=== PATIENT | male | born 1945 | race Caucasian/White ===

== ENCOUNTER 2016-09-28 09:19 | Inpatient (IN) | payer OTHER ==
[~2016-09-28] VITALS: Ht 172.7 cm; Wt 126.6 kg
[~2016-09-28 09:19] MED LIST: ALLOPURINOL100 MG PO; AMLODIPINE BESY10 MG PO; CALCITRIOL0.25 MCG PO; CALCIUM ACETAT667 M2 PO; CALCIUM ACETAT667 MG PO; CALCIUM CARBONATE PO; CARDIZEM30 MG PO; CARDURA4 MG PO; COUMADIN1 MG PO; COUMADIN2 MG PO; DOXAZOSIN MESYLA4 MG PO; EPOGEN,PRO20000 UNIT SC; ERGOCALCIF50000 UNIT PO; FENOGLIDE120 MG PO; FEOSOL325 MG PO; FUROSEMIDE40 MG PO; LASIX40 MG PO; LO-DOSE ASPIRIN81 M1 PO; LOFIBRA134 MG PO; LOPRESSOR100 M1 PO; LOPRESSOR50 MG PO; LOVAZA1 GM PO; NORVASC10 MG PO; OMEGA-3 ACID ETH1 GM PO; PIOGLITAZONE HC30 MG PO; PRAVACHOL20 MG PO; PRAVASTATIN SOD20 MG PO; QVAR 40 MCG IN7.3 GM IH; RENAL-VITE TAB0.8 MG PO; ROCALTROL0.25 MCG PO; TYLENOL EXTRA500 MG PO; ZYLOPRIM100 MG PO
[2016-10-02] MEDS ORDERED: LOPRESSOR100 M1 PO (16:25)
[2016-10-02] MEDS ORDERED: CARDURA4 MG PO (16:26)
[2016-10-02] MEDS ORDERED: CARDIZEM120 MG PO (16:26)
[2016-10-02] MEDS ORDERED: RENAL VITAMIN0.8 MG PO (16:29)
[2016-10-02] MEDS ORDERED: COLCRYS0.6 MG PO (16:30)
[2016-10-02] MEDS ORDERED: FERRIC CITRATE210 MG PO (16:31)
[2016-10-05 12:31] LABS: HEMATOCRIT 32.8 % (38.0-50.0); MCH 32.9 PG (29.0-34.0); MCV 102.8 FL (86-99); MEAN PLAT.VOLUME 10.9 uM^3 (9.0-12.4); PLATELET COUNT 144 K/uL (156-360); RBC DIS.WIDTH-CV 17.2 % (11.8-14.6); RBC DIS.WIDTH-SD 64.3 % (39-53); RED BLOOD COUNT 3.19 M/uL (4.00-5.50)
[2016-10-05 12:40] VITALS: BP 138/79
[2016-10-05 12:57] LABS: ANION GAP 12 MEQ/L (2-14); CHLORIDE 95 MEQ/L (99-109); GFR ESTIMATE (CALCULATED) 11 mL/min/; GLUCOSE 110 mg/dL (70-99); POTASSIUM 5.3 MEQ/L (3.7-5.4); SAMPLE HEMOLYSIS CHECK 0; SAMPLE ICTERIC CHECK 0; SAMPLE LIPEMIA CHECK 0; SODIUM 135 MEQ/L (136-147); UREA NITROGEN (BUN) 31 mg/dL (9-23)
[2016-10-05 13:42] LABS: INTER. NORMALIZED RATIO 1.6; PROTHROMBIN TIME 16.3 (9.2-11.2); PTT 41.1 (25-32)
[2016-10-05 13:56] LABS: METH RESISTANT S AUREUS PCR NEGATIVE (NEGATIVE)
[2016-10-05 13:59] LABS: SPECIMEN PROCESSING CONTROL PASS
[2016-10-05 14:00] LABS: PROBE CHECK PASS
[2016-10-05] MEDS ORDERED: HYDROCODON-ACE1 EAC7 PO (15:56)
[2016-10-05 16:14] LABS: POINT-OF-CARE METER ID UU13113675
[2016-10-05 17:45] VITALS: BP 146/81
[2016-10-05 18:15] VITALS: BP 137/77
[2016-10-05 20:00] VITALS: BP 135/72
[2016-10-05 20:30] LABS: METH RESISTANT S AUREUS PCR NEGATIVE (NEGATIVE)
[2016-10-05 20:31] LABS: PROBE CHECK PASS; SPECIMEN PROCESSING CONTROL PASS
[2016-10-05 21:00] VITALS: BP 117/60
[2016-10-05 22:00] VITALS: BP 125/70
[2016-10-06] VITALS (9 sets, daily range): BP systolic 86–138; BP diastolic 50–73
[2016-10-06 06:43] LABS: INTER. NORMALIZED RATIO 1.6; PROTHROMBIN TIME 16.3 (9.2-11.2)
[2016-10-06 08:59] LABS: EOSINOPHIL COUNT 0.2 K/uL (0-0.3); HEMATOCRIT 31.6 % (38.0-50.0); IMMATURE GRANULOCYTE (%) 0.7 % (0.0-0.7); IMMATURE GRANULOCYTE COUNT 0.1 K/uL; INSTRUMENT ABS NEUTROPHIL CT 7.8 K/uL; LYMPHOCYTE COUNT 0.5 K/uL (1.0-2.8); MCH 32.4 PG (29.0-34.0); MCHC 31.3 G/DL (30.0-36.0); MCV 103.3 FL (86-99); MEAN PLAT.VOLUME 10.5 uM^3 (9.0-12.4); MONOCYTE (%) 6.4 % (3-12); MONOCYTE COUNT 0.6 K/uL (0-0.8); NEUTROPHIL COUNT 7.8 K/uL (1.8-6.4); PLATELET COUNT 120 K/uL (156-360); RBC DIS.WIDTH-CV 17.1 % (11.8-14.6); RBC DIS.WIDTH-SD 64.5 % (39-53); RED BLOOD COUNT 3.06 M/uL (4.00-5.50); WHITE BLOOD COUNT 9.1 K/uL (4.1-10.2)
[2016-10-06 09:11] LABS: CHLORIDE 97 mEq/L (99-109); POTASSIUM 5.7 mEq/L (3.7-5.4); SODIUM 132 mEq/L (136-147)
[2016-10-06 09:14] LABS: ANION GAP 11 MEQ/L (2-14); GLUCOSE 186 mg/dL (70-99)
[2016-10-06 09:17] LABS: GFR ESTIMATE (CALCULATED) 8 mL/min/
[2016-10-06 09:18] LABS: UREA NITROGEN (BUN) 42 mg/dL (9-23)
[2016-10-06 16:23] LABS: POINT-OF-CARE METER ID UU13113781
[2016-10-07 04:22] VITALS: BP 106/54
[2016-10-07 06:42] LABS: INTER. NORMALIZED RATIO 1.7; PROTHROMBIN TIME 18.1 (9.2-11.2)
[2016-10-07 06:56] VITALS: BP 140/72
[2016-10-07 11:30] LABS: POINT-OF-CARE METER ID UU13113781
[2016-10-07 11:56] LABS: AHBS INDEX 127.27; HEPATITIS B SURFACE ANTIBODY REACTIVE
[2016-10-07 12:00] VITALS: BP 106/52
[2016-10-07 12:14] LABS: BASE EXCESS 3.9 mEq/L (-3 to +3); BICARBONATE 32.1 mEq/L (22-26); CARBOXY HGB 1.6 % (0-5); METHEMOGLOBIN 0.9 % (0-1.5); PCO2 70 mm Hg (35-45); PO2 131 mm Hg (80-100)
[2016-10-07 12:16] LABS: COMMENTS - BLOOD GASES +C; DEVICE NC; O2 FLOW 3 L/MIN; TOTAL RESP RATE 18 resp/min
[2016-10-07 12:17] LABS: pH 7.27 (7.35-7.45)
[2016-10-07 16:00] VITALS: BP 110/62
[2016-10-07 18:52] LABS: BICARBONATE 33.2 mEq/L (22-26); CARBOXY HGB 1.8 % (0-5); METHEMOGLOBIN 0.9 % (0-1.5); pH 7.33 (7.35-7.45)
[2016-10-07 18:53] LABS: COMMENTS - BLOOD GASES +C; DEVICE NC; O2 FLOW 1 L/MIN; PCO2 63 mm Hg (35-45); PO2 58 mm Hg (80-100); SITE RB; TOTAL RESP RATE 20 resp/min
[2016-10-07 18:54] LABS: SITE RB
[2016-10-07 19:30] VITALS: BP 117/58
[2016-10-08 00:20] VITALS: BP 98/52
[2016-10-08 04:15] VITALS: BP 120/55
[2016-10-08 07:48] LABS: INTER. NORMALIZED RATIO 1.9; PROTHROMBIN TIME 19.4 (9.2-11.2)
[2016-10-08 08:14] LABS: CHLORIDE 96 mEq/L (99-109); POTASSIUM 4.7 mEq/L (3.7-5.4); SODIUM 135 mEq/L (136-147)
[2016-10-08 08:16] LABS: GLUCOSE 133 mg/dL (70-99)
[2016-10-08 08:17] LABS: ANION GAP 12 MEQ/L (2-14)
[2016-10-08 08:20] LABS: GFR ESTIMATE (CALCULATED) 8 mL/min/
[2016-10-08 08:21] LABS: UREA NITROGEN (BUN) 36 mg/dL (9-23)
[2016-10-08 09:00] VITALS: BP 106/54
[2016-10-08 12:12] LABS: POINT-OF-CARE METER ID UU13113781
[2016-10-08 12:33] VITALS: BP 134/64
[2016-10-08 14:25] LABS: EOSINOPHIL (%) 4.1 % (0-5); EOSINOPHIL COUNT 0.3 K/uL (0-0.3); HEMATOCRIT 29.4 % (38.0-50.0); IMMATURE GRANULOCYTE (%) 0.3 % (0.0-0.7); INSTRUMENT ABS NEUTROPHIL CT 4.7 K/uL; LYMPHOCYTE COUNT 0.6 K/uL (1.0-2.8); MCH 32.6 PG (29.0-34.0); MCV 102.1 FL (86-99); MEAN PLAT.VOLUME 10.9 uM^3 (9.0-12.4); MONOCYTE (%) 8.4 % (3-12); MONOCYTE COUNT 0.5 K/uL (0-0.8); NEUTROPHIL (%) 76.5 % (45-76); NEUTROPHIL COUNT 4.7 K/uL (1.8-6.4); PLATELET COUNT 118 K/uL (156-360); RBC DIS.WIDTH-CV 16.2 % (11.8-14.6); RBC DIS.WIDTH-SD 61.7 % (39-53); RED BLOOD COUNT 2.88 M/uL (4.00-5.50)
[2016-10-08 14:30] LABS: WHITE BLOOD COUNT 6.2 K/uL (4.1-10.2)
[2016-10-08 14:41] LABS: ANION GAP 12 MEQ/L (2-14); CHLORIDE 94 MEQ/L (99-109); GFR ESTIMATE (CALCULATED) 8 mL/min/; GLUCOSE 118 mg/dL (70-99); POTASSIUM 4.4 MEQ/L (3.7-5.4); SAMPLE HEMOLYSIS CHECK 0; SAMPLE ICTERIC CHECK 0; SAMPLE LIPEMIA CHECK 0; SODIUM 132 MEQ/L (136-147); UREA NITROGEN (BUN) 38 mg/dL (9-23)
[2016-10-08 17:17] VITALS: BP 120/90
[2016-10-08 20:00] VITALS: BP 124/70
[2016-10-09 00:19] VITALS: BP 103/57
[2016-10-09 05:06] VITALS: BP 110/58
[2016-10-09 07:24] LABS: POINT-OF-CARE METER ID UU13113781
[2016-10-09 09:34] LABS: CHLORIDE 95 mEq/L (99-109); POTASSIUM 4.8 mEq/L (3.7-5.4); SODIUM 133 mEq/L (136-147)
[2016-10-09 09:36] LABS: GLUCOSE 164 mg/dL (70-99)
[2016-10-09 09:38] LABS: ANION GAP 15 MEQ/L (2-14)
[2016-10-09 09:40] LABS: EOSINOPHIL (%) 4.7 % (0-5); EOSINOPHIL COUNT 0.3 K/uL (0-0.3); GFR ESTIMATE (CALCULATED) 6 mL/min/; HEMATOCRIT 28.5 % (38.0-50.0); IMMATURE GRANULOCYTE (%) 0.4 % (0.0-0.7); INSTRUMENT ABS NEUTROPHIL CT 5.2 K/uL; LYMPHOCYTE COUNT 0.6 K/uL (1.0-2.8); MCH 31.6 PG (29.0-34.0); MCHC 31.9 G/DL (30.0-36.0); MEAN PLAT.VOLUME 11.7 uM^3 (9.0-12.4); MONOCYTE (%) 9.2 % (3-12); MONOCYTE COUNT 0.6 K/uL (0-0.8); NEUTROPHIL (%) 75.8 % (45-76); NEUTROPHIL COUNT 5.2 K/uL (1.8-6.4); PLATELET COUNT 116 K/uL (156-360); RBC DIS.WIDTH-SD 58.6 % (39-53); RED BLOOD COUNT 2.88 M/uL (4.00-5.50); WHITE BLOOD COUNT 6.9 K/uL (4.1-10.2)
[2016-10-09 09:41] LABS: UREA NITROGEN (BUN) 49 mg/dL (9-23)
[2016-10-09 10:32] LABS: INTER. NORMALIZED RATIO 1.7; PROTHROMBIN TIME 17.1 (9.2-11.2)
[2016-10-09 12:30] VITALS: BP 131/61
[2016-10-09 13:26] LABS: POINT-OF-CARE METER ID UU13113781
[2016-10-09 16:20] VITALS: BP 132/75
== END 2016-10-09 18:31 | disposition home or self-care (01) | DRG 37 ==
LOC: 2SOUTH 09:19 → 4WEST 10-05 17:37 → 4EAST 10-06 05:55
PROVIDERS: Hospitalist; Internal Medicine Nephrology; Internal Medicine Pulmonary Disease; Surgery
DX: I65.22 Occlusion and stenosis of left carotid artery (principal); N18.6 End stage renal disease; E66.9 Obesity, unspecified; Z68.41 Body mass index [BMI] 40.0-44.9, adult; Z99.2 Dependence on renal dialysis; I48.0 Paroxysmal atrial fibrillation; Z79.01 Long term (current) use of anticoagulants; R00.1 Bradycardia, unspecified; I95.9 Hypotension, unspecified; E87.5 Hyperkalemia; Z87.891 Personal history of nicotine dependence; R09.02 Hypoxemia; G89.29 Other chronic pain; M54.9 Dorsalgia, unspecified; E11.22 Type 2 diabetes mellitus with diabetic chronic kidney disease; I08.3 Combined rheumatic disorders of mitral, aortic and tricuspid valves; J44.9 Chronic obstructive pulmonary disease, unspecified; I13.11 Hypertensive heart and chronic kidney disease without heart failure, with stage 5 chronic kidney disease, or end stage renal disease
CPT/HCPCS: 36600; 71010; 71275; 80048; 80069; 82803; 82948; 85025; 85027; 85610; 85730; 86706; 87340; 87641; 93005; 94010; 94060; 94640; 94640 76; 94726; 94729; 94760; 94799; 99202; C1768; J0131; J0360; J0690; J1644; J1650; J2250; J2405; J2720; J2795; J3010; J7120

== ENCOUNTER 2016-12-20 08:42 | Inpatient (IN) | payer OTHER ==
[~2016-12-20] VITALS: Ht 172.7 cm; Wt 126.4 kg
[2016-12-20] VITALS (13 sets, daily range): BP systolic 103–124; BP diastolic 61–81
[~2016-12-20 08:42] MED LIST changes: +CARDIZEM120 MG PO; +COLCRYS0.6 MG PO; +FERRIC CITRATE210 MG PO; +HYDROCODON-ACE1 EAC7 PO; +RENAL VITAMIN0.8 MG PO
[2016-12-20 09:06] LABS: MCH 31.4 PG (29.0-34.0); MCHC 31.7 G/DL (30.0-36.0); MCV 99.2 FL (86-99); MEAN PLAT.VOLUME 11.5 uM^3 (9.0-12.4); PLATELET COUNT 114 K/uL (156-360); RBC DIS.WIDTH-CV 16.5 % (11.8-14.6); RBC DIS.WIDTH-SD 59.7 % (39-53); RED BLOOD COUNT 2.42 M/uL (4.00-5.50); WHITE BLOOD COUNT 8.6 K/uL (4.1-10.2)
[2016-12-20 09:14] LABS: PTT 66.8 SEC (25-37)
[2016-12-20 09:18] LABS: PROTHROMBIN TIME 104.9 SEC (10.2-12.9)
[2016-12-20 09:19] LABS: INTER. NORMALIZED RATIO 8.7
[2016-12-20 09:41] LABS: ANION GAP 15 MEQ/L (2-14); CHLORIDE 95 MEQ/L (99-109); POTASSIUM 5.8 MEQ/L (3.7-5.4); SAMPLE HEMOLYSIS CHECK 0; SAMPLE ICTERIC CHECK 0; SAMPLE LIPEMIA CHECK 0; SODIUM 136 MEQ/L (136-147)
[2016-12-20 09:46] LABS: GFR ESTIMATE (CALCULATED) 8 mL/min/; GLUCOSE 122 mg/dL (70-99); TROP-I INTERPRETATION NEGATIVE; TROPONIN-I 0.04 ng/mL (0.0-0.30); UREA NITROGEN (BUN) 69 mg/dL (9-23)
[2016-12-20] MEDS ORDERED: MEPHYTON5 MG PO (11:30)
[2016-12-20] MEDS ORDERED: AZELASTINE205.5 MCG/ BOTH NARES (11:31)
[2016-12-20] MEDS ORDERED: PROMETHAZINE-CODEINE PO (11:34)
[2016-12-20] MEDS ORDERED: BUDESONIDE8.43 ML BOTH NARES (11:35)
[2016-12-20 13:33] LABS: METH RESISTANT S AUREUS PCR NEGATIVE (NEGATIVE)
[2016-12-20 13:36] LABS: PROBE CHECK PASS; SPECIMEN PROCESSING CONTROL PASS
[2016-12-21] VITALS (15 sets, daily range): BP systolic 103–135; BP diastolic 60–91
[2016-12-21 00:43] LABS: MCH 31.2 PG (29.0-34.0); MCHC 32.2 G/DL (30.0-36.0); MCV 96.8 FL (86-99); MEAN PLAT.VOLUME 11.1 uM^3 (9.0-12.4); PLATELET COUNT 110 K/uL (156-360); RBC DIS.WIDTH-CV 17.8 % (11.8-14.6); RBC DIS.WIDTH-SD 62.2 % (39-53); RED BLOOD COUNT 2.79 M/uL (4.00-5.50); WHITE BLOOD COUNT 7.5 K/uL (4.1-10.2)
[2016-12-21 00:55] LABS: PTT 44.3 SEC (25-37)
[2016-12-21 01:04] LABS: INTER. NORMALIZED RATIO 2.5; PROTHROMBIN TIME 28.8 SEC (10.2-12.9)
[2016-12-21 04:36] LABS: HEMATOCRIT 25.7 % (38.0-50.0); MCH 31.5 PG (29.0-34.0); MCHC 32.7 G/DL (30.0-36.0); MCV 96.3 FL (86-99); MEAN PLAT.VOLUME 11.2 uM^3 (9.0-12.4); PLATELET COUNT 115 K/uL (156-360); RBC DIS.WIDTH-CV 17.8 % (11.8-14.6); RBC DIS.WIDTH-SD 62.2 % (39-53); RED BLOOD COUNT 2.67 M/uL (4.00-5.50); WHITE BLOOD COUNT 6.7 K/uL (4.1-10.2)
[2016-12-21 04:45] LABS: CHLORIDE 99 mEq/L (99-109); POTASSIUM 5.3 mEq/L (3.7-5.4); SODIUM 138 mEq/L (136-147)
[2016-12-21 04:48] LABS: ANION GAP 12 MEQ/L (2-14)
[2016-12-21 04:50] LABS: GFR ESTIMATE (CALCULATED) 13 mL/min/
[2016-12-21 04:51] LABS: UREA NITROGEN (BUN) 37 mg/dL (9-23)
[2016-12-21 04:59] LABS: GLUCOSE 82 mg/dL (70-99)
[2016-12-21 06:01] LABS: PROTHROMBIN TIME 22.5 SEC (10.2-12.9)
[2016-12-21] MEDS ORDERED: MIRCERA100 MCG/0. IV (12:16)
[2016-12-21 13:22] LABS: HEMATOCRIT 29.1 % (38.0-50.0)
[2016-12-21 14:36] LABS: INTER. NORMALIZED RATIO 1.7; PROTHROMBIN TIME 18.9 SEC (10.2-12.9)
[2016-12-22] VITALS (9 sets, daily range): BP systolic 108–151; BP diastolic 78–99
[2016-12-22 07:56] LABS: EOSINOPHIL (%) 4.6 % (0-5); EOSINOPHIL COUNT 0.3 K/uL (0-0.3); IMMATURE GRANULOCYTE (%) 0.5 % (0.0-0.7); INSTRUMENT ABS NEUTROPHIL CT 4.8 K/uL; LYMPHOCYTE COUNT 0.7 K/uL (1.0-2.8); MCH 31.7 PG (29.0-34.0); MCHC 32.3 G/DL (30.0-36.0); MCV 98.1 FL (86-99); MEAN PLAT.VOLUME 10.7 uM^3 (9.0-12.4); MONOCYTE (%) 9.7 % (3-12); MONOCYTE COUNT 0.6 K/uL (0-0.8); NEUTROPHIL (%) 74.1 % (45-76); NEUTROPHIL COUNT 4.8 K/uL (1.8-6.4); PLATELET COUNT 126 K/uL (156-360); RBC DIS.WIDTH-CV 16.8 % (11.8-14.6); RBC DIS.WIDTH-SD 58.1 % (39-53); RED BLOOD COUNT 2.65 M/uL (4.00-5.50); WHITE BLOOD COUNT 6.5 K/uL (4.1-10.2)
[2016-12-22 08:10] LABS: INTER. NORMALIZED RATIO 2.2; PROTHROMBIN TIME 24.4 SEC (10.2-12.9)
[2016-12-22 08:22] LABS: ANION GAP 12 MEQ/L (2-14); CHLORIDE 98 MEQ/L (99-109); GFR ESTIMATE (CALCULATED) 10 mL/min/; GLUCOSE 86 mg/dL (70-99); POTASSIUM 4.9 MEQ/L (3.7-5.4); SAMPLE HEMOLYSIS CHECK 0; SAMPLE ICTERIC CHECK 0; SAMPLE LIPEMIA CHECK 0; SODIUM 135 MEQ/L (136-147); UREA NITROGEN (BUN) 50 mg/dL (9-23)
[2016-12-23] VITALS (15 sets, daily range): BP systolic 86–136; BP diastolic 49–89
[2016-12-23 06:06] LABS: EOSINOPHIL (%) 4.5 % (0-5); EOSINOPHIL COUNT 0.3 K/uL (0-0.3); HEMATOCRIT 28.6 % (38.0-50.0); IMMATURE GRANULOCYTE (%) 0.4 % (0.0-0.7); INSTRUMENT ABS NEUTROPHIL CT 5.3 K/uL; LYMPHOCYTE COUNT 0.7 K/uL (1.0-2.8); MCH 30.4 PG (29.0-34.0); MCHC 31.5 G/DL (30.0-36.0); MCV 96.6 FL (86-99); MEAN PLAT.VOLUME 10.5 uM^3 (9.0-12.4); MONOCYTE (%) 10.2 % (3-12); MONOCYTE COUNT 0.7 K/uL (0-0.8); NEUTROPHIL (%) 75.1 % (45-76); NEUTROPHIL COUNT 5.3 K/uL (1.8-6.4); PLATELET COUNT 127 K/uL (156-360); RBC DIS.WIDTH-CV 17.1 % (11.8-14.6); RBC DIS.WIDTH-SD 59.3 % (39-53); RED BLOOD COUNT 2.96 M/uL (4.00-5.50)
[2016-12-23 06:13] LABS: PROTHROMBIN TIME 34.9 SEC (10.2-12.9)
[2016-12-23 14:27] LABS: HEMATOCRIT 26.9 % (38.0-50.0); MCV 97.8 FL (86-99)
[2016-12-23 21:44] LABS: HEMATOCRIT 26.6 % (38.0-50.0); MCV 96.7 FL (86-99)
[2016-12-24 05:20] LABS: EOSINOPHIL (%) 5.6 % (0-5); EOSINOPHIL COUNT 0.4 K/uL (0-0.3); IMMATURE GRANULOCYTE (%) 0.4 % (0.0-0.7); INSTRUMENT ABS NEUTROPHIL CT 4.9 K/uL; LYMPHOCYTE COUNT 0.8 K/uL (1.0-2.8); MCH 30.8 PG (29.0-34.0); MCHC 31.5 G/DL (30.0-36.0); MCV 97.7 FL (86-99); MEAN PLAT.VOLUME 10.6 uM^3 (9.0-12.4); MONOCYTE (%) 9.6 % (3-12); MONOCYTE COUNT 0.7 K/uL (0-0.8); NEUTROPHIL (%) 71.6 % (45-76); NEUTROPHIL COUNT 4.9 K/uL (1.8-6.4); PLATELET COUNT 132 K/uL (156-360); RBC DIS.WIDTH-CV 16.6 % (11.8-14.6); RBC DIS.WIDTH-SD 58.4 % (39-53); RED BLOOD COUNT 2.66 M/uL (4.00-5.50); WHITE BLOOD COUNT 6.8 K/uL (4.1-10.2)
[2016-12-24 06:15] LABS: ANION GAP 10 MEQ/L (2-14); CHLORIDE 98 MEQ/L (99-109); GFR ESTIMATE (CALCULATED) 10 mL/min/; GLUCOSE 90 mg/dL (70-99); SAMPLE HEMOLYSIS CHECK 0; SAMPLE ICTERIC CHECK 0; SAMPLE LIPEMIA CHECK 0; SODIUM 138 MEQ/L (136-147); UREA NITROGEN (BUN) 27 mg/dL (9-23)
[2016-12-24 06:26] LABS: POTASSIUM 3.8 MEQ/L (3.7-5.4)
[2016-12-24 06:47] LABS: INTER. NORMALIZED RATIO 1.5; PROTHROMBIN TIME 16.5 SEC (10.2-12.9)
[2016-12-24 08:00] VITALS: BP 116/85
[2016-12-24 10:00] VITALS: BP 0/0; BP 116/85
[2016-12-24 12:00] VITALS: BP 117/62
[2016-12-24 17:05] VITALS: BP 113/56
[2016-12-24 20:12] VITALS: BP 143/79
[2016-12-24 23:28] VITALS: BP 110/55
[2016-12-25 03:21] VITALS: BP 117/64
[2016-12-25 05:55] LABS: INTER. NORMALIZED RATIO 1.5; PROTHROMBIN TIME 17.2 SEC (10.2-12.9)
[2016-12-25 06:07] LABS: ANION GAP 11 MEQ/L (2-14); CHLORIDE 97 MEQ/L (99-109); GFR ESTIMATE (CALCULATED) 8 mL/min/; GLUCOSE 85 mg/dL (70-99); POTASSIUM 4.2 MEQ/L (3.7-5.4); SAMPLE HEMOLYSIS CHECK 0; SAMPLE ICTERIC CHECK 0; SAMPLE LIPEMIA CHECK 0; SODIUM 135 MEQ/L (136-147); UREA NITROGEN (BUN) 32 mg/dL (9-23)
[2016-12-25 07:00] VITALS: BP 127/87
[2016-12-25 07:31] LABS: EOSINOPHIL (%) 5.5 % (0-5); EOSINOPHIL COUNT 0.4 K/uL (0-0.3); HEMATOCRIT 26.8 % (38.0-50.0); IMMATURE GRANULOCYTE (%) 0.3 % (0.0-0.7); INSTRUMENT ABS NEUTROPHIL CT 5.5 K/uL; LYMPHOCYTE COUNT 0.7 K/uL (1.0-2.8); MCH 30.8 PG (29.0-34.0); MCHC 31.3 G/DL (30.0-36.0); MCV 98.2 FL (86-99); MEAN PLAT.VOLUME 10.8 uM^3 (9.0-12.4); MONOCYTE (%) 9.4 % (3-12); MONOCYTE COUNT 0.7 K/uL (0-0.8); NEUTROPHIL (%) 74.7 % (45-76); NEUTROPHIL COUNT 5.5 K/uL (1.8-6.4); PLATELET COUNT 124 K/uL (156-360); RBC DIS.WIDTH-CV 16.4 % (11.8-14.6); RBC DIS.WIDTH-SD 57.3 % (39-53); RED BLOOD COUNT 2.73 M/uL (4.00-5.50); WHITE BLOOD COUNT 7.3 K/uL (4.1-10.2)
[2016-12-25 08:00] LABS: EOSINOPHIL (%) 5.2 % (0-5); EOSINOPHIL COUNT 0.4 K/uL (0-0.3); HEMATOCRIT 24.9 % (38.0-50.0); IMMATURE GRANULOCYTE (%) 0.4 % (0.0-0.7); INSTRUMENT ABS NEUTROPHIL CT 5.4 K/uL; LYMPHOCYTE COUNT 0.6 K/uL (1.0-2.8); MCH 31.9 PG (29.0-34.0); MCHC 32.5 G/DL (30.0-36.0); MEAN PLAT.VOLUME 10.8 uM^3 (9.0-12.4); MONOCYTE (%) 8.2 % (3-12); MONOCYTE COUNT 0.6 K/uL (0-0.8); NEUTROPHIL (%) 77.2 % (45-76); NEUTROPHIL COUNT 5.4 K/uL (1.8-6.4); PLATELET COUNT 124 K/uL (156-360); RBC DIS.WIDTH-CV 16.7 % (11.8-14.6); RBC DIS.WIDTH-SD 58.3 % (39-53); RED BLOOD COUNT 2.54 M/uL (4.00-5.50)
[2016-12-25 11:30] LABS: HBSG INDEX 0.17
[2016-12-25 12:38] VITALS: BP 121/72
[2016-12-25 15:48] VITALS: BP 140/70
[2016-12-25 20:00] VITALS: BP 121/66
[2016-12-25 23:55] VITALS: BP 131/67
[2016-12-26 04:00] VITALS: BP 139/80
[2016-12-26 05:43] LABS: HEMATOCRIT 28.2 % (38.0-50.0); MCH 32.4 PG (29.0-34.0); MCHC 32.3 G/DL (30.0-36.0); MCV 100.4 FL (86-99); MEAN PLAT.VOLUME 10.9 uM^3 (9.0-12.4); PLATELET COUNT 135 K/uL (156-360); RBC DIS.WIDTH-SD 61.3 % (39-53); RED BLOOD COUNT 2.81 M/uL (4.00-5.50); WHITE BLOOD COUNT 7.5 K/uL (4.1-10.2)
[2016-12-26 08:40] VITALS: BP 109/56
[2016-12-26 09:33] LABS: HEMATOCRIT 28.8 % (38.0-50.0); MCH 30.9 PG (29.0-34.0); MCHC 30.6 G/DL (30.0-36.0); MCV 101.1 FL (86-99); MEAN PLAT.VOLUME 10.6 uM^3 (9.0-12.4); PLATELET COUNT 151 K/uL (156-360); RBC DIS.WIDTH-CV 16.9 % (11.8-14.6); RBC DIS.WIDTH-SD 61.1 % (39-53); RED BLOOD COUNT 2.85 M/uL (4.00-5.50); WHITE BLOOD COUNT 7.7 K/uL (4.1-10.2)
[2016-12-26 09:55] LABS: ANION GAP 9 MEQ/L (2-14); CHLORIDE 99 MEQ/L (99-109); POTASSIUM 4.3 MEQ/L (3.7-5.4); SAMPLE HEMOLYSIS CHECK 0; SAMPLE ICTERIC CHECK 0; SAMPLE LIPEMIA CHECK 0; SODIUM 137 MEQ/L (136-147)
[2016-12-26 10:04] LABS: GFR ESTIMATE (CALCULATED) 11 mL/min/; UREA NITROGEN (BUN) 21 mg/dL (9-23)
[2016-12-26 10:08] LABS: GLUCOSE 149 mg/dL (70-99)
[2016-12-26] MEDS ORDERED: LOPRESSOR25 MG PO (11:28)
[2016-12-26] MEDS ORDERED: DILTIAZEM 24HR120 MG PO (11:29)
[2016-12-26 12:00] VITALS: BP 105/53
== END 2016-12-26 16:43 | disposition home or self-care (01) | DRG 377 ==
LOC: EME 08:42 → 4WEST 11:05 → EDOF 11:05 → 4EAST 11:05 → CANRESERV 11:07 → ENRESERV 11:07 → 4WEST 11:49 → ENRESERV 12-24 15:12 → 4EAST 12-24 16:43
PROVIDERS: Emergency Medicine; Internal Medicine; Internal Medicine Critical Care Medicine; Internal Medicine Gastroenterology; Internal Medicine Nephrology; Physician Assistant; Student in an Organized Health Care Education/Training Program
PROC: 30233N1 Transfusion of Nonautologous Red Blood Cells into Peripheral Vein, Percutaneous Approach (ICD-10-PCS; principal; 2016-12-20)
PROC: 5A1D60Z (ICD-10-PCS; 2016-12-20)
PROC: 0DJD8ZZ Inspection of Lower Intestinal Tract, Via Natural or Artificial Opening Endoscopic (ICD-10-PCS; 2016-12-22)
PROC: 0DJ08ZZ Inspection of Upper Intestinal Tract, Via Natural or Artificial Opening Endoscopic (ICD-10-PCS; 2016-12-22)
PROC: 30233K1 Transfusion of Nonautologous Frozen Plasma into Peripheral Vein, Percutaneous Approach (ICD-10-PCS; 2016-12-23)
DX: K92.1 Melena (principal); T45.515A Adverse effect of anticoagulants, initial encounter; D62 Acute posthemorrhagic anemia; K63.5 Polyp of colon; K29.60 Other gastritis without bleeding; N17.9 Acute kidney failure, unspecified; E87.5 Hyperkalemia; I95.9 Hypotension, unspecified; I12.0 Hypertensive chronic kidney disease with stage 5 chronic kidney disease or end stage renal disease; N18.6 End stage renal disease; E11.22 Type 2 diabetes mellitus with diabetic chronic kidney disease; I48.1 Persistent atrial fibrillation; J44.9 Chronic obstructive pulmonary disease, unspecified; K64.8 Other hemorrhoids; D63.1 Anemia in chronic kidney disease; I25.10 Atherosclerotic heart disease of native coronary artery without angina pectoris; E66.9 Obesity, unspecified; Z68.41 Body mass index [BMI] 40.0-44.9, adult; I25.2 Old myocardial infarction; Z99.2 Dependence on renal dialysis; Z95.5 Presence of coronary angioplasty implant and graft; Z87.891 Personal history of nicotine dependence; Z79.01 Long term (current) use of anticoagulants; Z80.9 Family history of malignant neoplasm, unspecified
CPT/HCPCS: 36415; 71010; 80048; 84484; 85014; 85018; 85025; 85025 91; 85027; 85610; 85730; 86900; 86901; 86920; 87340; 87641; 93005; 94799; 99281; 99285; J0881; J1100; J1756; J2405; J2765; J3430; J7030; J7050; P9016; P9017; S0028

== ENCOUNTER 2017-05-30 16:08 | Inpatient (IN) | payer OTHER ==
[~2017-05-30] VITALS: Ht 172.7 cm; Wt 116.0 kg
[~2017-05-30 16:08] MED LIST changes: +AZELASTINE205.5 MCG/ BOTH NARES; +BUDESONIDE8.43 ML BOTH NARES; +DILTIAZEM 24HR120 MG PO; +LOPRESSOR25 MG PO; +MEPHYTON5 MG PO; +MIRCERA100 MCG/0. IV; +PROMETHAZINE-CODEINE PO
[2017-05-30 17:07] LABS: HEMATOCRIT 27.9 % (38.0-50.0); HEMOGLOBIN 8.7 G/DL (12.5-16.6); MCH 30.3 PG (29.0-34.0); MCHC 31.2 G/DL (30.0-36.0); MCV 97.2 FL (86-99); PLATELET COUNT 180 K/uL (156-360); RBC DIS.WIDTH-CV 16.2 % (11.8-14.6); RBC DIS.WIDTH-SD 57.5 % (39-53); RED BLOOD COUNT 2.87 M/uL (4.00-5.50); WHITE BLOOD COUNT 9.1 K/uL (4.1-10.2)
[2017-05-30 17:12] LABS: INTER. NORMALIZED RATIO 3.3
[2017-05-30 17:15] LABS: PTT 43.8 SEC (25-37)
[2017-05-30 17:16] LABS: ALBUMIN 3.7 g/dL (3.2-4.8); CHLORIDE 94 mEq/L (99-109); POTASSIUM 3.9 mEq/L (3.7-5.4); SODIUM 136 mEq/L (136-147)
[2017-05-30 17:18] LABS: GLUCOSE 111 mg/dL (70-99); TOTAL PROTEIN 6.8 g/dL (6.4-8.3)
[2017-05-30 17:20] LABS: TOTAL BILIRUBIN 0.6 mg/dL (0.0-1.0)
[2017-05-30 17:22] LABS: ALKALINE PHOSPHATASE 205 IU/L (3-129); CREATININE 5.5 mg/dL (0.6-1.3); GFR ESTIMATE (CALCULATED) 11 mL/min/ (58.99-99999)
[2017-05-30 17:23] LABS: UREA NITROGEN (BUN) 35 mg/dL (9-23)
[2017-05-30 17:24] LABS: AST (GOT) 16 IU/L (2-34)
[2017-05-30 17:25] LABS: ALT (GPT) 17 IU/L (3-49)
[2017-05-30 17:28] LABS: TROP-I INTERPRETATION NEGATIVE; TROPONIN-I 0.03 ng/mL (0.0-0.30)
[2017-05-30] MEDS ORDERED: CARDIZEM30 MG PO (19:28)
[2017-05-30] MEDS ORDERED: COUMADIN1 MG PO (19:29)
[2017-05-30] MEDS ORDERED: PAXIL10 MG PO (19:30)
[2017-05-30 20:09] LABS: HEMATOCRIT 27.2 % (38.0-50.0); HEMOGLOBIN 8.4 G/DL (12.5-16.6); MCHC 30.9 G/DL (30.0-36.0); MCV 97.1 FL (86-99); PLATELET COUNT 162 K/uL (156-360); RBC DIS.WIDTH-CV 16.3 % (11.8-14.6); RBC DIS.WIDTH-SD 58.4 % (39-53); WHITE BLOOD COUNT 9.3 K/uL (4.1-10.2)
[2017-05-31] VITALS (9 sets, daily range): BP systolic 90–132; BP diastolic 50–69
[2017-05-31 00:41] LABS: HEMATOCRIT 24.9 % (38.0-50.0); HEMOGLOBIN 7.8 G/DL (12.5-16.6); MCH 30.7 PG (29.0-34.0); MCHC 31.3 G/DL (30.0-36.0); PLATELET COUNT 142 K/uL (156-360); RBC DIS.WIDTH-CV 16.4 % (11.8-14.6); RBC DIS.WIDTH-SD 58.5 % (39-53); RED BLOOD COUNT 2.54 M/uL (4.00-5.50); WHITE BLOOD COUNT 7.7 K/uL (4.1-10.2)
[2017-05-31 01:00] LABS: TROP-I INTERPRETATION NEGATIVE; TROPONIN-I 0.04 ng/mL (0.0-0.30)
[2017-05-31 07:21] LABS: HEMATOCRIT 25.8 % (38.0-50.0); HEMOGLOBIN 7.7 G/DL (12.5-16.6); MCV 98.9 FL (86-99)
[2017-05-31 07:53] LABS: CHLORIDE 96 MEQ/L (99-109); CREATININE 6.3 MG/DL (0.6-1.3); GFR ESTIMATE (CALCULATED) 9 mL/min/ (58.99-99999); GLUCOSE 103 mg/dL (70-99); SODIUM 136 MEQ/L (136-147); UREA NITROGEN (BUN) 45 mg/dL (9-23)
[2017-05-31 08:09] LABS: TROP-I INTERPRETATION NEGATIVE; TROPONIN-I 0.03 ng/mL (0.0-0.30)
[2017-05-31 08:45] LABS: INTER. NORMALIZED RATIO 1.8
[2017-05-31 16:18] LABS: HEMATOCRIT 27.1 % (38.0-50.0); HEMOGLOBIN 8.7 G/DL (12.5-16.6); MCV 96.4 FL (86-99)
[2017-06-01] VITALS (7 sets, daily range): BP systolic 94–131; BP diastolic 55–76
[2017-06-01 07:56] LABS: HEMATOCRIT 25.3 % (38.0-50.0); HEMOGLOBIN 7.9 G/DL (12.5-16.6); MCH 30.6 PG (29.0-34.0); MCHC 31.2 G/DL (30.0-36.0); MCV 98.1 FL (86-99); PLATELET COUNT 160 K/uL (156-360); RBC DIS.WIDTH-CV 16.9 % (11.8-14.6); RBC DIS.WIDTH-SD 60.2 % (39-53); RED BLOOD COUNT 2.58 M/uL (4.00-5.50); WHITE BLOOD COUNT 7.6 K/uL (4.1-10.2)
[2017-06-01 08:05] LABS: ALBUMIN 3.4 G/DL (3.2-4.8); CHLORIDE 97 MEQ/L (99-109); POTASSIUM 4.9 MEQ/L (3.7-5.4); SODIUM 138 MEQ/L (136-147)
[2017-06-01 08:12] LABS: GFR ESTIMATE (CALCULATED) 7 mL/min/ (58.99-99999); GLUCOSE 125 mg/dL (70-99); PHOSPHORUS 7.8 mg/dL (2.5-4.9); UREA NITROGEN (BUN) 58 mg/dL (9-23)
[2017-06-01 08:15] LABS: CREATININE 8.2 MG/DL (0.6-1.3)
[2017-06-01 14:19] LABS: HEMATOCRIT 30.1 % (38.0-50.0); HEMOGLOBIN 9.5 G/DL (12.5-16.6); MCV 96.8 FL (86-99)
[2017-06-01 14:38] LABS: CHLORIDE 101 MEQ/L (99-109); POTASSIUM 4.2 MEQ/L (3.7-5.4); SODIUM 141 MEQ/L (136-147)
[2017-06-01 14:45] LABS: GLUCOSE 108 mg/dL (70-99)
[2017-06-01 14:46] LABS: CREATININE 4.6 MG/DL (0.6-1.3); GFR ESTIMATE (CALCULATED) 13 mL/min/ (58.99-99999); PHOSPHORUS 4.7 mg/dL (2.5-4.9); UREA NITROGEN (BUN) 24 mg/dL (9-23)
[2017-06-01 17:54] LABS: HEMATOCRIT 30.5 % (38.0-50.0); HEMOGLOBIN 9.5 G/DL (12.5-16.6); MCV 98.1 FL (86-99)
[2017-06-02 00:33] LABS: HEMATOCRIT 29.3 % (38.0-50.0); HEMOGLOBIN 9.4 G/DL (12.5-16.6); MCV 95.4 FL (86-99)
[2017-06-02 02:55] VITALS: BP 110/57
[2017-06-02 06:05] LABS: HEMATOCRIT 27.8 % (38.0-50.0); HEMOGLOBIN 8.8 G/DL (12.5-16.6); MCH 30.9 PG (29.0-34.0); MCHC 31.7 G/DL (30.0-36.0); MCV 97.5 FL (86-99); PLATELET COUNT 147 K/uL (156-360); RED BLOOD COUNT 2.85 M/uL (4.00-5.50); WHITE BLOOD COUNT 7.5 K/uL (4.1-10.2)
[2017-06-02 06:29] LABS: CHLORIDE 100 MEQ/L (99-109); CREATININE 6.3 MG/DL (0.6-1.3); GFR ESTIMATE (CALCULATED) 9 mL/min/ (58.99-99999); GLUCOSE 118 mg/dL (70-99); MAGNESIUM 2.1 mg/dl (1.3-2.7); SODIUM 140 MEQ/L (136-147); UREA NITROGEN (BUN) 30 mg/dL (9-23)
[2017-06-02 07:42] VITALS: BP 92/58
[2017-06-02 11:19] VITALS: BP 120/56
[2017-06-02 11:30] LABS: HEPATITIS B SURFACE ANTIGEN Nonreactive
[2017-06-02 11:58] LABS: HEPATITIS B SURFACE ANTIBODY REACTIVE
[2017-06-02 12:01] LABS: HEMATOCRIT 28.1 % (38.0-50.0); HEMOGLOBIN 8.7 G/DL (12.5-16.6); MCV 97.2 FL (86-99)
[2017-06-02 15:32] VITALS: BP 102/58
[2017-06-02 19:14] VITALS: BP 110/56
[2017-06-02 22:41] LABS: HEMATOCRIT 27.4 % (38.0-50.0); HEMOGLOBIN 8.5 G/DL (12.5-16.6); MCV 96.8 FL (86-99)
[2017-06-02 23:18] VITALS: BP 121/58
[2017-06-03] VITALS (7 sets, daily range): BP systolic 117–149; BP diastolic 58–73
[2017-06-03 02:54] LABS: BASOPHIL (%) 0.5 % (0-1); EOSINOPHIL (%) 7.1 % (0-5); EOSINOPHIL COUNT 0.6 K/uL (0-0.3); HEMATOCRIT 27.4 % (38.0-50.0); HEMOGLOBIN 8.6 G/DL (12.5-16.6); IMMATURE GRANULOCYTE (%) 0.5 % (0.0-0.7); LYMPHOCYTE (%) 8.4 % (15-42); LYMPHOCYTE COUNT 0.7 K/uL (1.0-2.8); MCH 30.3 PG (29.0-34.0); MCHC 31.4 G/DL (30.0-36.0); MCV 96.5 FL (86-99); MONOCYTE (%) 9.9 % (3-12); MONOCYTE COUNT 0.9 K/uL (0-0.8); NEUTROPHIL (%) 73.6 % (45-76); NEUTROPHIL COUNT 6.3 K/uL (1.8-6.4); PLATELET COUNT 152 K/uL (156-360); RBC DIS.WIDTH-CV 16.2 % (11.8-14.6); RBC DIS.WIDTH-SD 57.7 % (39-53); RED BLOOD COUNT 2.84 M/uL (4.00-5.50); WHITE BLOOD COUNT 8.6 K/uL (4.1-10.2)
[2017-06-03 03:11] LABS: CHLORIDE 102 mEq/L (99-109); SODIUM 138 mEq/L (136-147)
[2017-06-03 03:13] LABS: GLUCOSE 139 mg/dL (70-99)
[2017-06-03 03:17] LABS: GFR ESTIMATE (CALCULATED) 7 mL/min/ (58.99-99999)
[2017-06-03 03:18] LABS: UREA NITROGEN (BUN) 34 mg/dL (9-23)
[2017-06-04 05:16] VITALS: BP 145/65
[2017-06-04 05:59] LABS: BASOPHIL (%) 0.8 % (0-1); BASOPHIL COUNT 0.1 K/uL (0-0.1); EOSINOPHIL (%) 7.5 % (0-5); EOSINOPHIL COUNT 0.5 K/uL (0-0.3); HEMATOCRIT 28.2 % (38.0-50.0); HEMOGLOBIN 8.6 G/DL (12.5-16.6); IMMATURE GRANULOCYTE (%) 0.6 % (0.0-0.7); LYMPHOCYTE (%) 8.6 % (15-42); LYMPHOCYTE COUNT 0.6 K/uL (1.0-2.8); MCH 29.5 PG (29.0-34.0); MCHC 30.5 G/DL (30.0-36.0); MCV 96.6 FL (86-99); MONOCYTE (%) 9.9 % (3-12); MONOCYTE COUNT 0.7 K/uL (0-0.8); NEUTROPHIL (%) 72.6 % (45-76); NEUTROPHIL COUNT 5.1 K/uL (1.8-6.4); PLATELET COUNT 153 K/uL (156-360); RBC DIS.WIDTH-CV 15.8 % (11.8-14.6); RBC DIS.WIDTH-SD 54.8 % (39-53); RED BLOOD COUNT 2.92 M/uL (4.00-5.50); WHITE BLOOD COUNT 7.1 K/uL (4.1-10.2)
[2017-06-04 06:22] LABS: CHLORIDE 101 MEQ/L (99-109); GFR ESTIMATE (CALCULATED) 6 mL/min/ (58.99-99999); GLUCOSE 148 mg/dL (70-99); POTASSIUM 3.9 MEQ/L (3.7-5.4); SODIUM 140 MEQ/L (136-147); UREA NITROGEN (BUN) 38 mg/dL (9-23)
[2017-06-04 06:24] LABS: CREATININE 9.7 MG/DL (0.6-1.3)
[2017-06-04 07:38] VITALS: BP 133/71
[2017-06-04 12:00] VITALS: BP 100/70
[2017-06-04 15:15] LABS: INTER. NORMALIZED RATIO 1.5
[2017-06-04 19:35] VITALS: BP 115/56
[2017-06-04 23:52] VITALS: BP 96/55
[2017-06-05 04:15] VITALS: BP 117/56
[2017-06-05 06:08] LABS: BASOPHIL (%) 0.4 % (0-1); EOSINOPHIL (%) 8.4 % (0-5); EOSINOPHIL COUNT 0.6 K/uL (0-0.3); HEMATOCRIT 27.4 % (38.0-50.0); HEMOGLOBIN 8.4 G/DL (12.5-16.6); IMMATURE GRANULOCYTE (%) 0.4 % (0.0-0.7); LYMPHOCYTE (%) 8.3 % (15-42); LYMPHOCYTE COUNT 0.6 K/uL (1.0-2.8); MCH 29.6 PG (29.0-34.0); MCHC 30.7 G/DL (30.0-36.0); MCV 96.5 FL (86-99); MONOCYTE (%) 10.1 % (3-12); MONOCYTE COUNT 0.7 K/uL (0-0.8); NEUTROPHIL (%) 72.4 % (45-76); NEUTROPHIL COUNT 5.1 K/uL (1.8-6.4); PLATELET COUNT 151 K/uL (156-360); RBC DIS.WIDTH-CV 15.5 % (11.8-14.6); RBC DIS.WIDTH-SD 54.5 % (39-53); RED BLOOD COUNT 2.84 M/uL (4.00-5.50)
[2017-06-05 06:12] LABS: INTER. NORMALIZED RATIO 1.6
[2017-06-05 07:44] LABS: ALKALINE PHOSPHATASE 151 IU/L (3-129); ALT (GPT) 19 IU/L (3-49); AST (GOT) 22 IU/L (2-34); CHLORIDE 101 MEQ/L (99-109); GFR ESTIMATE (CALCULATED) 8 mL/min/ (58.99-99999); GLUCOSE 116 mg/dL (70-99); SODIUM 140 MEQ/L (136-147); TOTAL BILIRUBIN 0.8 MG/DL (0.0-1.0); TOTAL PROTEIN 5.5 G/DL (6.4-8.3); UREA NITROGEN (BUN) 23 mg/dL (9-23)
[2017-06-05 07:52] VITALS: BP 157/60
[2017-06-05] MEDS ORDERED: PROTONIX40 MG PO (11:00)
[2017-06-05 12:27] VITALS: BP 103/55
== END 2017-06-05 17:19 | disposition home or self-care (01) | DRG 377 ==
LOC: EME 16:08 → 4EAST 19:57 → EDOF 19:57 → ENRESERV 19:57 → 4SOUTH 19:57 → EDOF 05-31 00:10 → ENRESERV 05-31 00:44 → 4SOUTH 05-31 01:58 → ENRESERV 06-01 13:17 → 4EAST 06-01 15:03 → ENPENDDIS 06-05 → 4EAST 06-05 17:19
PROVIDERS: Hospitalist; Internal Medicine; Internal Medicine Nephrology; Physician Assistant
PROC: 0DBN8ZZ Excision of Sigmoid Colon, Via Natural or Artificial Opening Endoscopic (ICD-10-PCS; principal; 2017-05-30)
PROC: 30233N1 Transfusion of Nonautologous Red Blood Cells into Peripheral Vein, Percutaneous Approach (ICD-10-PCS; principal; 2017-05-30)
PROC: 0DBA8ZX Excision of Jejunum, Via Natural or Artificial Opening Endoscopic, Diagnostic (ICD-10-PCS; principal; 2017-05-30)
PROC: 5A1D70Z Performance of Urinary Filtration, Intermittent, Less than 6 Hours Per Day (ICD-10-PCS; 2017-06-01)
PROC: 5A1D70Z Performance of Urinary Filtration, Intermittent, Less than 6 Hours Per Day (ICD-10-PCS; 2017-06-04)
DX: K92.1 Melena (principal); J96.11 Chronic respiratory failure with hypoxia; I12.0 Hypertensive chronic kidney disease with stage 5 chronic kidney disease or end stage renal disease; D64.9 Anemia, unspecified; D62 Acute posthemorrhagic anemia; I35.0 Nonrheumatic aortic (valve) stenosis; D50.0 Iron deficiency anemia secondary to blood loss (chronic); K63.5 Polyp of colon; J90 Pleural effusion, not elsewhere classified; E66.9 Obesity, unspecified; G25.3 Myoclonus; I12.9 Hypertensive chronic kidney disease with stage 1 through stage 4 chronic kidney disease, or unspecified chronic kidney disease; E11.22 Type 2 diabetes mellitus with diabetic chronic kidney disease; E78.2 Mixed hyperlipidemia; N18.9 Chronic kidney disease, unspecified; N18.6 End stage renal disease; I25.10 Atherosclerotic heart disease of native coronary artery without angina pectoris; R07.9 Chest pain, unspecified; K64.9 Unspecified hemorrhoids; J15.9 Unspecified bacterial pneumonia; I48.2 Chronic atrial fibrillation; Z99.2 Dependence on renal dialysis; Z87.891 Personal history of nicotine dependence; Z99.81 Dependence on supplemental oxygen; I25.2 Old myocardial infarction; Z68.41 Body mass index [BMI] 40.0-44.9, adult; Z79.01 Long term (current) use of anticoagulants; J98.11 Atelectasis; Z86.010 Personal history of colon polyps; Z95.5 Presence of coronary angioplasty implant and graft; R79.1 Abnormal coagulation profile; K29.00 Acute gastritis without bleeding
CPT/HCPCS: 70450; 71046; 74176; 80048; 80048 91; 80053; 80069; 82140; 82948; 83735; 83880; 84100; 84484; 85014; 85018; 85025; 85027; 85610; 85730; 86706; 86850; 86900; 86901; 86920; 87340; 87641; 88305; 93005; 94640; 94640 76; 94799; 95819; 99202; 99281; 99285; C9113; J0692; J3430; J7030; J7050; P9016; P9040

== ENCOUNTER 2017-07-17 16:53 | Inpatient (IN) | payer OTHER ==
[~2017-07-17] VITALS: Ht 172.7 cm; Wt 133.3 kg
[~2017-07-17 16:53] MED LIST changes: +PAXIL10 MG PO; +PROTONIX40 MG PO
[2017-07-17 18:38] LABS: HEMATOCRIT 27.3 % (38.0-50.0); HEMOGLOBIN 8.3 G/DL (12.5-16.6); MCH 29.7 PG (29.0-34.0); MCHC 30.4 G/DL (30.0-36.0); MCV 97.8 FL (86-99); PLATELET COUNT 187 K/uL (156-360); RBC DIS.WIDTH-CV 16.5 % (11.8-14.6); RBC DIS.WIDTH-SD 60.3 % (39-53); RED BLOOD COUNT 2.79 M/uL (4.00-5.50); WHITE BLOOD COUNT 12.7 K/uL (4.1-10.2)
[2017-07-17 18:50] LABS: CHLORIDE 101 mEq/L (99-109); SODIUM 139 mEq/L (136-147)
[2017-07-17 18:52] LABS: GLUCOSE 113 mg/dL (70-99)
[2017-07-17 18:56] LABS: CREATININE 9.8 mg/dL (0.6-1.3); GFR ESTIMATE (CALCULATED) 6 mL/min/ (58.99-99999)
[2017-07-17 18:57] LABS: UREA NITROGEN (BUN) 77 mg/dL (9-23)
[2017-07-17 19:03] LABS: TROP-I INTERPRETATION NEGATIVE; TROPONIN-I 0.02 ng/mL (0.0-0.30)
[2017-07-17 19:30] LABS: POTASSIUM 8.1 mEq/L (3.7-5.4)
[2017-07-17] MEDS ORDERED: PROTONIX40 MG PO (19:51)
[2017-07-17] MEDS ORDERED: DIALYSIS (19:53)
[2017-07-17] MEDS ORDERED: IRON INJECTION (20:00)
[2017-07-17 22:53] VITALS: BP 86/57
[2017-07-17 23:00] VITALS: BP 86/57
[2017-07-17 23:15] VITALS: BP 77/49
[2017-07-17 23:30] VITALS: BP 94/45
[2017-07-18] VITALS (26 sets, daily range): BP systolic 72–111; BP diastolic 37–64
[2017-07-18] LABS: PTT 25.5 SEC (25-37)
[2017-07-18 00:28] LABS: HEMATOCRIT 26.8 % (38.0-50.0); HEMOGLOBIN 8.1 G/DL (12.5-16.6); MCV 97.1 FL (86-99)
[2017-07-18 00:36] LABS: CHLORIDE 104 mEq/L (99-109); SODIUM 140 mEq/L (136-147)
[2017-07-18 00:42] LABS: GFR ESTIMATE (CALCULATED) 5 mL/min/ (58.99-99999)
[2017-07-18 00:43] LABS: POTASSIUM 7.5 mEq/L (3.7-5.4); UREA NITROGEN (BUN) 80 mg/dL (9-23)
[2017-07-18 01:16] LABS: GLUCOSE 83 mg/dL (70-99)
[2017-07-18 02:43] LABS: INTER. NORMALIZED RATIO 1.3
[2017-07-18 02:46] LABS: PTT 34.9 SEC (25-37)
[2017-07-18 05:39] LABS: HEMATOCRIT 25.3 % (38.0-50.0); HEMOGLOBIN 7.7 G/DL (12.5-16.6); MCH 29.7 PG (29.0-34.0); MCV 97.7 FL (86-99); RED BLOOD COUNT 2.59 M/uL (4.00-5.50); WHITE BLOOD COUNT 10.7 K/uL (4.1-10.2)
[2017-07-18 05:40] LABS: MCHC 30.4 G/DL (30.0-36.0); PLATELET COUNT 159 K/uL (156-360); RBC DIS.WIDTH-CV 17.2 % (11.8-14.6); RBC DIS.WIDTH-SD 60.8 % (39-53)
[2017-07-18 05:45] LABS: INTER. NORMALIZED RATIO 1.3
[2017-07-18 05:48] LABS: PTT 33.6 SEC (25-37)
[2017-07-18 06:14] LABS: CHLORIDE 101 MEQ/L (99-109); CREATININE 10.3 MG/DL (0.6-1.3); GFR ESTIMATE (CALCULATED) 5 mL/min/ (58.99-99999); SODIUM 140 MEQ/L (136-147); UREA NITROGEN (BUN) 74 mg/dL (9-23)
[2017-07-18 06:15] LABS: GLUCOSE 163 mg/dL (70-99); POTASSIUM 6.4 MEQ/L (3.7-5.4)
[2017-07-18 10:15] LABS: INTER. NORMALIZED RATIO 1.2
[2017-07-18 10:18] LABS: PTT 33.8 SEC (25-37)
[2017-07-18 11:52] LABS: HEMATOCRIT 26.3 % (38.0-50.0); HEMOGLOBIN 8.4 G/DL (12.5-16.6); MCV 94.3 FL (86-99)
[2017-07-18 14:58] LABS: INTER. NORMALIZED RATIO 1.2
[2017-07-18 15:01] LABS: PTT 33.5 SEC (25-37)
[2017-07-18 18:19] LABS: BASOPHIL (%) 0.3 % (0-1); EOSINOPHIL (%) 1.2 % (0-5); EOSINOPHIL COUNT 0.1 K/uL (0-0.3); HEMATOCRIT 26.8 % (38.0-50.0); HEMOGLOBIN 8.1 G/DL (12.5-16.6); IMMATURE GRANULOCYTE (%) 0.5 % (0.0-0.7); LYMPHOCYTE (%) 4.9 % (15-42); LYMPHOCYTE COUNT 0.5 K/uL (1.0-2.8); MCH 28.8 PG (29.0-34.0); MCHC 30.2 G/DL (30.0-36.0); MCV 95.4 FL (86-99); MONOCYTE (%) 8.7 % (3-12); MONOCYTE COUNT 0.9 K/uL (0-0.8); NEUTROPHIL (%) 84.4 % (45-76); NEUTROPHIL COUNT 8.4 K/uL (1.8-6.4); PLATELET COUNT 166 K/uL (156-360); RBC DIS.WIDTH-SD 59.9 % (39-53); RED BLOOD COUNT 2.81 M/uL (4.00-5.50); WHITE BLOOD COUNT 9.9 K/uL (4.1-10.2)
[2017-07-18 18:42] LABS: CHLORIDE 97 MEQ/L (99-109); CREATININE 4.6 MG/DL (0.6-1.3); GFR ESTIMATE (CALCULATED) 13 mL/min/ (58.99-99999); GLUCOSE 117 mg/dL (70-99); POTASSIUM 4.8 MEQ/L (3.7-5.4); SODIUM 137 MEQ/L (136-147); UREA NITROGEN (BUN) 24 mg/dL (9-23)
[2017-07-19] VITALS (25 sets, daily range): BP systolic 74–132; BP diastolic 10–70
[2017-07-19 08:59] LABS: HEMATOCRIT 29.2 % (38.0-50.0); HEMOGLOBIN 9.1 G/DL (12.5-16.6); MCH 30.1 PG (29.0-34.0); MCHC 31.2 G/DL (30.0-36.0); MCV 96.7 FL (86-99); NRBC (%) 0.2 /100 WBC (0-0); PLATELET COUNT 213 K/uL (156-360); RBC DIS.WIDTH-CV 16.9 % (11.8-14.6); RBC DIS.WIDTH-SD 59.5 % (39-53); RED BLOOD COUNT 3.02 M/uL (4.00-5.50); WHITE BLOOD COUNT 9.3 K/uL (4.1-10.2)
[2017-07-19 09:23] LABS: CHLORIDE 95 MEQ/L (99-109); CREATININE 5.8 MG/DL (0.6-1.3); GFR ESTIMATE (CALCULATED) 10 mL/min/ (58.99-99999); GLUCOSE 107 mg/dL (70-99); POTASSIUM 4.7 MEQ/L (3.7-5.4); SODIUM 135 MEQ/L (136-147); UREA NITROGEN (BUN) 28 mg/dL (9-23)
[2017-07-20 03:21] VITALS: BP 108/70
[2017-07-20 06:47] LABS: IRON 24 MCG/DL (35-150); TRANSFERRIN (TIBC) 100.9 mg/dL (215-380); TRANSFERRIN SATUR. 24 % (20-55)
[2017-07-20 08:17] LABS: BASOPHIL (%) 0.6 % (0-1); EOSINOPHIL (%) 4.6 % (0-5); EOSINOPHIL COUNT 0.3 K/uL (0-0.3); HEMATOCRIT 25.9 % (38.0-50.0); HEMOGLOBIN 7.9 G/DL (12.5-16.6); IMMATURE GRANULOCYTE (%) 0.6 % (0.0-0.7); LYMPHOCYTE (%) 8.6 % (15-42); LYMPHOCYTE COUNT 0.6 K/uL (1.0-2.8); MCHC 30.5 G/DL (30.0-36.0); MCV 95.2 FL (86-99); MONOCYTE (%) 10.4 % (3-12); MONOCYTE COUNT 0.8 K/uL (0-0.8); NEUTROPHIL (%) 75.2 % (45-76); NEUTROPHIL COUNT 5.4 K/uL (1.8-6.4); PLATELET COUNT 193 K/uL (156-360); RBC DIS.WIDTH-CV 16.2 % (11.8-14.6); RBC DIS.WIDTH-SD 56.4 % (39-53); RED BLOOD COUNT 2.72 M/uL (4.00-5.50); WHITE BLOOD COUNT 7.2 K/uL (4.1-10.2)
[2017-07-20 08:18] VITALS: BP 110/65
[2017-07-20 08:56] LABS: ALBUMIN 2.7 G/DL (3.2-4.8); CHLORIDE 96 MEQ/L (99-109); POTASSIUM 4.1 MEQ/L (3.7-5.4); SODIUM 135 MEQ/L (136-147)
[2017-07-20 09:02] LABS: GFR ESTIMATE (CALCULATED) 8 mL/min/ (58.99-99999); GLUCOSE 160 mg/dL (70-99); PHOSPHORUS 6.3 mg/dL (2.5-4.9); UREA NITROGEN (BUN) 35 mg/dL (9-23)
[2017-07-20 09:06] LABS: CREATININE 6.9 MG/DL (0.6-1.3)
[2017-07-20 15:56] VITALS: BP 102/68
[2017-07-20 18:15] LABS: HEMATOCRIT 28.6 % (38.0-50.0); HEMOGLOBIN 8.8 G/DL (12.5-16.6); MCV 96.6 FL (86-99)
[2017-07-20 19:24] VITALS: BP 95/54
[2017-07-21] VITALS (7 sets, daily range): BP systolic 97–120; BP diastolic 52–65
[2017-07-21 05:52] LABS: BASOPHIL (%) 0.7 % (0-1); BASOPHIL COUNT 0.1 K/uL (0-0.1); EOSINOPHIL (%) 5.7 % (0-5); EOSINOPHIL COUNT 0.5 K/uL (0-0.3); HEMATOCRIT 28.6 % (38.0-50.0); HEMOGLOBIN 8.4 G/DL (12.5-16.6); IMMATURE GRANULOCYTE (%) 0.6 % (0.0-0.7); LYMPHOCYTE (%) 8.1 % (15-42); LYMPHOCYTE COUNT 0.7 K/uL (1.0-2.8); MCHC 29.4 G/DL (30.0-36.0); MCV 98.6 FL (86-99); MONOCYTE (%) 10.6 % (3-12); MONOCYTE COUNT 0.9 K/uL (0-0.8); NEUTROPHIL (%) 74.3 % (45-76); PLATELET COUNT 217 K/uL (156-360); RBC DIS.WIDTH-CV 15.9 % (11.8-14.6); RBC DIS.WIDTH-SD 57.2 % (39-53)
[2017-07-21 06:20] LABS: CHLORIDE 99 MEQ/L (99-109); GFR ESTIMATE (CALCULATED) 12 mL/min/ (58.99-99999); GLUCOSE 116 mg/dL (70-99); POTASSIUM 4.2 MEQ/L (3.7-5.4); SODIUM 140 MEQ/L (136-147); UREA NITROGEN (BUN) 17 mg/dL (9-23)
[2017-07-21 13:01] LABS: HEMATOCRIT 28.7 % (38.0-50.0); HEMOGLOBIN 8.5 G/DL (12.5-16.6); MCV 98.3 FL (86-99)
[2017-07-21 20:22] LABS: HEMATOCRIT 27.7 % (38.0-50.0); HEMOGLOBIN 8.2 G/DL (12.5-16.6); MCV 97.9 FL (86-99)
[2017-07-22] VITALS (7 sets, daily range): BP systolic 92–172; BP diastolic 52–74
[2017-07-22 06:22] LABS: BASOPHIL (%) 0.7 % (0-1); BASOPHIL COUNT 0.1 K/uL (0-0.1); EOSINOPHIL (%) 6.6 % (0-5); EOSINOPHIL COUNT 0.5 K/uL (0-0.3); HEMATOCRIT 28.6 % (38.0-50.0); HEMOGLOBIN 8.5 G/DL (12.5-16.6); IMMATURE GRANULOCYTE (%) 0.7 % (0.0-0.7); LYMPHOCYTE (%) 8.8 % (15-42); LYMPHOCYTE COUNT 0.7 K/uL (1.0-2.8); MCH 29.4 PG (29.0-34.0); MCHC 29.7 G/DL (30.0-36.0); MONOCYTE (%) 10.3 % (3-12); MONOCYTE COUNT 0.8 K/uL (0-0.8); NEUTROPHIL (%) 72.9 % (45-76); NEUTROPHIL COUNT 5.6 K/uL (1.8-6.4); PLATELET COUNT 226 K/uL (156-360); RBC DIS.WIDTH-CV 15.9 % (11.8-14.6); RBC DIS.WIDTH-SD 56.9 % (39-53); RED BLOOD COUNT 2.89 M/uL (4.00-5.50); WHITE BLOOD COUNT 7.7 K/uL (4.1-10.2)
[2017-07-22 07:00] LABS: CHLORIDE 96 MEQ/L (99-109); GFR ESTIMATE (CALCULATED) 8 mL/min/ (58.99-99999); GLUCOSE 121 mg/dL (70-99); POTASSIUM 4.1 MEQ/L (3.7-5.4); SODIUM 136 MEQ/L (136-147); UREA NITROGEN (BUN) 24 mg/dL (9-23)
[2017-07-22 07:03] LABS: CREATININE 6.9 MG/DL (0.6-1.3)
[2017-07-22 15:14] LABS: INTER. NORMALIZED RATIO 1.2
[2017-07-22 19:58] LABS: HEMATOCRIT 28.4 % (38.0-50.0); HEMOGLOBIN 8.5 G/DL (12.5-16.6); MCV 97.3 FL (86-99)
[2017-07-23 00:23] VITALS: BP 98/68
[2017-07-23 04:00] VITALS: BP 106/64
[2017-07-23 07:07] VITALS: BP 110/68
[2017-07-23 08:16] LABS: BASOPHIL (%) 0.6 % (0-1); BASOPHIL COUNT 0.1 K/uL (0-0.1); EOSINOPHIL (%) 5.8 % (0-5); EOSINOPHIL COUNT 0.5 K/uL (0-0.3); HEMATOCRIT 27.4 % (38.0-50.0); HEMOGLOBIN 8.4 G/DL (12.5-16.6); LYMPHOCYTE (%) 6.2 % (15-42); LYMPHOCYTE COUNT 0.5 K/uL (1.0-2.8); MCHC 30.7 G/DL (30.0-36.0); MCV 97.9 FL (86-99); MONOCYTE (%) 10.7 % (3-12); MONOCYTE COUNT 0.9 K/uL (0-0.8); NEUTROPHIL (%) 75.7 % (45-76); NEUTROPHIL COUNT 6.4 K/uL (1.8-6.4); PLATELET COUNT 226 K/uL (156-360); RBC DIS.WIDTH-SD 56.5 % (39-53); WHITE BLOOD COUNT 8.4 K/uL (4.1-10.2)
[2017-07-23 08:17] LABS: HEMATOCRIT 27.4 % (38.0-50.0); HEMOGLOBIN 8.4 G/DL (12.5-16.6); MCV 97.9 FL (86-99)
[2017-07-23 08:18] LABS: INTER. NORMALIZED RATIO 1.4
[2017-07-23 08:44] LABS: CHLORIDE 99 MEQ/L (99-109); GFR ESTIMATE (CALCULATED) 7 mL/min/ (58.99-99999); GLUCOSE 163 mg/dL (70-99); POTASSIUM 4.3 MEQ/L (3.7-5.4); SODIUM 136 MEQ/L (136-147); UREA NITROGEN (BUN) 31 mg/dL (9-23)
[2017-07-23 08:46] LABS: CREATININE 8.5 MG/DL (0.6-1.3)
[2017-07-23 11:25] LABS: HEPATITIS B SURFACE ANTIGEN Nonreactive
[2017-07-23 11:27] LABS: HEPATITIS B SURFACE ANTIBODY REACTIVE
[2017-07-23 12:31] VITALS: BP 108/64
[2017-07-23 15:11] VITALS: BP 119/66
[2017-07-23 21:22] VITALS: BP 106/64
[2017-07-24] VITALS: BP 98/54
[2017-07-24 06:19] LABS: INTER. NORMALIZED RATIO 1.4
[2017-07-24 07:12] VITALS: BP 138/72
[2017-07-24] MEDS ORDERED: LOPRESSOR25 MG PO (11:47)
== END 2017-07-24 13:58 | disposition home or self-care (01) | DRG 640 ==
LOC: EME 16:53 → EDOF 21:54 → 4WEST 21:54 → ENRESERV 21:58 → 4WEST 22:45 → ENRESERV 07-19 15:46 → 5SOUTH 07-19 17:21
PROVIDERS: Emergency Medicine; Hospitalist; Internal Medicine; Internal Medicine Critical Care Medicine; Internal Medicine Nephrology; Specialist; Student in an Organized Health Care Education/Training Program; Surgery
PROC: 30233N1 Transfusion of Nonautologous Red Blood Cells into Peripheral Vein, Percutaneous Approach (ICD-10-PCS; principal; 2017-07-18)
PROC: 5A1D70Z Performance of Urinary Filtration, Intermittent, Less than 6 Hours Per Day (ICD-10-PCS; 2017-07-18)
PROC: 0DJD8ZZ Inspection of Lower Intestinal Tract, Via Natural or Artificial Opening Endoscopic (ICD-10-PCS; 2017-07-19)
DX: E87.5 Hyperkalemia (principal); I12.0 Hypertensive chronic kidney disease with stage 5 chronic kidney disease or end stage renal disease; N18.6 End stage renal disease; Z91.15 Patient's noncompliance with renal dialysis; Z99.2 Dependence on renal dialysis; N17.9 Acute kidney failure, unspecified; E11.22 Type 2 diabetes mellitus with diabetic chronic kidney disease; D68.32 Hemorrhagic disorder due to extrinsic circulating anticoagulants; T45.515A Adverse effect of anticoagulants, initial encounter; I95.9 Hypotension, unspecified; J43.9 Emphysema, unspecified; J96.11 Chronic respiratory failure with hypoxia; I48.2 Chronic atrial fibrillation; E87.70 Fluid overload, unspecified; J90 Pleural effusion, not elsewhere classified; K63.5 Polyp of colon; K57.30 Diverticulosis of large intestine without perforation or abscess without bleeding; K64.8 Other hemorrhoids; I25.10 Atherosclerotic heart disease of native coronary artery without angina pectoris; D63.8 Anemia in other chronic diseases classified elsewhere; E78.5 Hyperlipidemia, unspecified; K92.1 Melena; M10.9 Gout, unspecified; E66.9 Obesity, unspecified; Z68.41 Body mass index [BMI] 40.0-44.9, adult; I35.0 Nonrheumatic aortic (valve) stenosis; I25.2 Old myocardial infarction; R26.9 Unspecified abnormalities of gait and mobility; F32.9 Major depressive disorder, single episode, unspecified; H53.50 Unspecified color vision deficiencies; Z87.891 Personal history of nicotine dependence; Z95.5 Presence of coronary angioplasty implant and graft; Z96.641 Presence of right artificial hip joint; Z96.89 Presence of other specified functional implants
CPT/HCPCS: 71046; 80047; 80048; 80048 91; 80069; 82948; 83540; 84466; 84484; 84999; 85014; 85018; 85025; 85027; 85610; 85730; 86706; 86850; 86900; 86901; 86920; 87340; 87641; 93005; 94640; 94644; 94799; 99202; 99281; 99285; C9113; C9132; J0610; J0881; J1756; J3430; J7030; J7042; J7050; P9016

== ENCOUNTER 2017-08-01 16:22 | Inpatient (IN) | payer OTHER ==
[~2017-08-01] VITALS: Ht 172.7 cm; Wt 108.6 kg
[~2017-08-01 16:22] MED LIST changes: +DIALYSIS; +IRON INJECTION
[2017-08-01 17:05] LABS: HEMOGLOBIN 9.2 G/DL (12.5-16.6); MCH 30.2 PG (29.0-34.0); MCHC 29.7 G/DL (30.0-36.0); MCV 101.6 FL (86-99); PLATELET COUNT 172 K/uL (156-360); RBC DIS.WIDTH-CV 17.5 % (11.8-14.6); RBC DIS.WIDTH-SD 65.1 % (39-53); RED BLOOD COUNT 3.05 M/uL (4.00-5.50); WHITE BLOOD COUNT 6.2 K/uL (4.1-10.2)
[2017-08-01 17:10] LABS: BASE EXCESS 3.9 mEq/L (-3 to +3); BICARBONATE 33.6 mEq/L (22-26); CARBOXY HGB 1.1 % (0-5); COMMENTS - BLOOD GASES A+C+; DEVICE HFNC; METHEMOGLOBIN 0.3 % (0-1.5); O2 FLOW 6 L/MIN; PCO2 84 mm Hg (35-45); PO2 184 mm Hg (80-100); SITE RR; pH 7.21 (7.35-7.45)
[2017-08-01 17:11] LABS: TOTAL RESP RATE 23 resp/min
[2017-08-01 17:24] LABS: CHLORIDE 99 mEq/L (99-109); POTASSIUM 3.7 mEq/L (3.7-5.4); SODIUM 138 mEq/L (136-147)
[2017-08-01 17:25] LABS: GLUCOSE 113 mg/dL (70-99)
[2017-08-01 17:29] LABS: GFR ESTIMATE (CALCULATED) 22 mL/min/ (58.99-99999)
[2017-08-01 17:30] LABS: UREA NITROGEN (BUN) 11 mg/dL (9-23)
[2017-08-01 17:35] LABS: TROP-I INTERPRETATION NEGATIVE; TROPONIN-I < 0.01 ng/mL (0.0-0.30)
[2017-08-01 19:31] LABS: BASE EXCESS 5.5 mEq/L (-3 to +3); BICARBONATE 34.1 mEq/L (22-26); CARBOXY HGB 1.2 % (0-5); METHEMOGLOBIN 0 % (0-1.5)
[2017-08-01 19:32] LABS: COMMENTS - BLOOD GASES A+C+; DEVICE VENT; FI02 60 %; MODE SPONT NIV; PCO2 76 mm Hg (35-45); PO2 67 mm Hg (80-100); SITE RR
[2017-08-01 19:33] LABS: PEEP 5 CM/H20; TOTAL RESP RATE 20 resp/min
[2017-08-01 19:34] LABS: PRES. SUPPORT 12 CM/H2O; pH 7.26 (7.35-7.45)
[2017-08-01 20:25] VITALS: BP 107/59
[2017-08-01 20:31] VITALS: BP 107/59
[2017-08-01 21:00] VITALS: BP 94/62
[2017-08-01 21:01] VITALS: BP 94/62
[2017-08-01 22:00] VITALS: BP 102/66
[2017-08-01 22:01] LABS: BASE EXCESS 6.7 mEq/L (-3 to +3); BICARBONATE 35.6 mEq/L (22-26); CARBOXY HGB 0.4 % (0-5); METHEMOGLOBIN 0.9 % (0-1.5); PCO2 83 mm Hg (35-45); PO2 241 mm Hg (80-100); SITE LB; pH 7.24 (7.35-7.45)
[2017-08-01 22:02] LABS: DEVICE VENT; FI02 70 %; MODE SPON NIV; PEEP 6 CM/H20; PRES. SUPPORT 14 CM/H2O; TOTAL RESP RATE 18 resp/min
[2017-08-01 23:01] VITALS: BP 96/58
[2017-08-02] VITALS (24 sets, daily range): BP systolic 88–125; BP diastolic 55–79
[2017-08-02 02:34] LABS: BASE EXCESS 4.5 mEq/L (-3 to +3); BICARBONATE 32.6 mEq/L (22-26); CARBOXY HGB 0.5 % (0-5); METHEMOGLOBIN 0.6 % (0-1.5)
[2017-08-02 02:35] LABS: DEVICE VENT; FI02 50 %; MECHANICAL RATE 18 resp/min; MODE SIMV; PCO2 71 mm Hg (35-45); PEEP 6 CM/H20; PO2 129 mm Hg (80-100); PRES. SUPPORT 14 CM/H2O; SITE LB; TIDAL VOLUME 500 ML; TOTAL RESP RATE 22 resp/min; pH 7.27 (7.35-7.45)
[2017-08-02 05:08] LABS: BASOPHIL (%) 0.2 % (0-1); EOSINOPHIL (%) 0 % (0-5); HEMATOCRIT 29.7 % (38.0-50.0); HEMOGLOBIN 8.5 G/DL (12.5-16.6); IMMATURE GRANULOCYTE (%) 0.6 % (0.0-0.7); LYMPHOCYTE (%) 3.6 % (15-42); LYMPHOCYTE COUNT 0.2 K/uL (1.0-2.8); MCH 29.5 PG (29.0-34.0); MCHC 28.6 G/DL (30.0-36.0); MCV 103.1 FL (86-99); MONOCYTE COUNT 0.1 K/uL (0-0.8); NEUTROPHIL (%) 92.6 % (45-76); NEUTROPHIL COUNT 4.3 K/uL (1.8-6.4); PLATELET COUNT 151 K/uL (156-360); RBC DIS.WIDTH-CV 17.8 % (11.8-14.6); RBC DIS.WIDTH-SD 65.8 % (39-53); RED BLOOD COUNT 2.88 M/uL (4.00-5.50); WHITE BLOOD COUNT 4.7 K/uL (4.1-10.2)
[2017-08-02 05:33] LABS: CHLORIDE 97 MEQ/L (99-109); GLUCOSE 116 mg/dL (70-99); MAGNESIUM 1.7 mg/dl (1.3-2.7); PHOSPHORUS 4.1 mg/dL (2.5-4.9); SODIUM 137 MEQ/L (136-147); UREA NITROGEN (BUN) 16 mg/dL (9-23)
[2017-08-02 05:34] LABS: CREATININE 3.7 MG/DL (0.6-1.3); GFR ESTIMATE (CALCULATED) 17 mL/min/ (58.99-99999); POTASSIUM 4.7 MEQ/L (3.7-5.4)
[2017-08-02 06:10] LABS: INTER. NORMALIZED RATIO 1.6
[2017-08-02 06:12] LABS: PTT 36.6 SEC (25-37)
[2017-08-02 06:18] LABS: BASE EXCESS 2.8 mEq/L (-3 to +3); BICARBONATE 30.5 mEq/L (22-26); CARBOXY HGB 0.4 % (0-5); DEVICE VENT; METHEMOGLOBIN 0.6 % (0-1.5); PCO2 65 mm Hg (35-45); PO2 90 mm Hg (80-100); SITE RB; pH 7.28 (7.35-7.45)
[2017-08-02 06:19] LABS: FI02 50 %; MECHANICAL RATE 22 resp/min; MODE AC; PEEP 6 CM/H20; TIDAL VOLUME 500 ML; TOTAL RESP RATE 22 resp/min
[2017-08-02 11:47] LABS: BASE EXCESS 2.2 mEq/L (-3 to +3); BICARBONATE 29.2 mEq/L (22-26); CARBOXY HGB 0.6 % (0-5); METHEMOGLOBIN 1.2 % (0-1.5); PO2 78 mm Hg (80-100); pH 7.31 (7.35-7.45)
[2017-08-02 11:48] LABS: COMMENTS - BLOOD GASES +C; DEVICE NC; O2 FLOW 4 L/MIN; PCO2 58 mm Hg (35-45); SITE RB; TOTAL RESP RATE 24 resp/min
[2017-08-03] VITALS (24 sets, daily range): BP systolic 80–131; BP diastolic 57–112
[2017-08-03 06:13] LABS: BASOPHIL (%) 0 % (0-1); EOSINOPHIL (%) 0 % (0-5); HEMATOCRIT 28.5 % (38.0-50.0); HEMOGLOBIN 8.6 G/DL (12.5-16.6); IMMATURE GRANULOCYTE (%) 0.5 % (0.0-0.7); LYMPHOCYTE (%) 3.4 % (15-42); LYMPHOCYTE COUNT 0.3 K/uL (1.0-2.8); MCH 29.7 PG (29.0-34.0); MCHC 30.2 G/DL (30.0-36.0); MCV 98.3 FL (86-99); MONOCYTE COUNT 0.2 K/uL (0-0.8); NEUTROPHIL (%) 93.1 % (45-76); NEUTROPHIL COUNT 7.5 K/uL (1.8-6.4); PLATELET COUNT 165 K/uL (156-360); RBC DIS.WIDTH-CV 17.7 % (11.8-14.6); RBC DIS.WIDTH-SD 63.4 % (39-53); WHITE BLOOD COUNT 8.1 K/uL (4.1-10.2)
[2017-08-03 06:30] LABS: CHLORIDE 96 MEQ/L (99-109); GFR ESTIMATE (CALCULATED) 11 mL/min/ (58.99-99999); POTASSIUM 4.5 MEQ/L (3.7-5.4); SODIUM 135 MEQ/L (136-147); VANCOMYCIN, TROUGH 16.3 MCG/ML (10-20)
[2017-08-03 06:31] LABS: CREATININE 5.6 MG/DL (0.6-1.3); GLUCOSE 189 mg/dL (70-99); UREA NITROGEN (BUN) 40 mg/dL (9-23)
[2017-08-04] VITALS (21 sets, daily range): BP systolic 74–135; BP diastolic 57–90
[2017-08-04 06:08] LABS: BASOPHIL (%) 0 % (0-1); EOSINOPHIL (%) 0 % (0-5); HEMATOCRIT 30.1 % (38.0-50.0); IMMATURE GRANULOCYTE (%) 0.5 % (0.0-0.7); LYMPHOCYTE (%) 2.8 % (15-42); LYMPHOCYTE COUNT 0.2 K/uL (1.0-2.8); MCH 29.5 PG (29.0-34.0); MCHC 29.9 G/DL (30.0-36.0); MCV 98.7 FL (86-99); MONOCYTE (%) 2.8 % (3-12); MONOCYTE COUNT 0.2 K/uL (0-0.8); NEUTROPHIL (%) 93.9 % (45-76); NEUTROPHIL COUNT 7.6 K/uL (1.8-6.4); PLATELET COUNT 176 K/uL (156-360); RBC DIS.WIDTH-CV 17.9 % (11.8-14.6); RBC DIS.WIDTH-SD 64.5 % (39-53); RED BLOOD COUNT 3.05 M/uL (4.00-5.50); WHITE BLOOD COUNT 8.1 K/uL (4.1-10.2)
[2017-08-04 06:15] LABS: INTER. NORMALIZED RATIO 1.8
[2017-08-04 06:18] LABS: PTT 33.8 SEC (25-37)
[2017-08-04 06:34] LABS: CHLORIDE 98 MEQ/L (99-109); CREATININE 4.2 MG/DL (0.6-1.3); GFR ESTIMATE (CALCULATED) 15 mL/min/ (58.99-99999); GLUCOSE 193 mg/dL (70-99); MAGNESIUM 1.8 mg/dl (1.3-2.7); PHOSPHORUS 3.6 mg/dL (2.5-4.9); POTASSIUM 4.2 MEQ/L (3.7-5.4); SODIUM 138 MEQ/L (136-147); UREA NITROGEN (BUN) 27 mg/dL (9-23)
[2017-08-04 14:07] LABS: TYPE OF FLUID PLEURAL
[2017-08-04 14:19] LABS: APPEARANCE SL. HAZY-YELLOW; BODY FLUID RBC'S 4000 /MM^3 (0-100); BODY FLUID WBC'S 95 /MM^3 (0-500)
[2017-08-04 14:46] LABS: BODY FLUID GLUCOSE 219 MG/DL; BODY FLUID LDH 128 IU/L
[2017-08-04 14:47] LABS: BODY FLUID EOSINOPHILS 0 % (0-25); BODY FLUID PROTEIN < 3.0 G/DL; MONONUCLEAR WBC'S 79 %; POLYNUCLEAR WBC'S 21 % (0-25)
[2017-08-04 15:54] LABS: GLUCOSE 203 mg/dL (70-99); LACTATE DEHYDROGENASE 135 IU/L (20-246)
[2017-08-05] VITALS (10 sets, daily range): BP systolic 100–127; BP diastolic 51–84
[2017-08-06 03:18] VITALS: BP 115/90
[2017-08-06 05:33] LABS: BASOPHIL (%) 0 % (0-1); EOSINOPHIL (%) 0 % (0-5); HEMATOCRIT 31.7 % (38.0-50.0); HEMOGLOBIN 9.8 G/DL (12.5-16.6); IMMATURE GRANULOCYTE (%) 0.8 % (0.0-0.7); LYMPHOCYTE (%) 3.3 % (15-42); LYMPHOCYTE COUNT 0.3 K/uL (1.0-2.8); MCH 29.8 PG (29.0-34.0); MCHC 30.9 G/DL (30.0-36.0); MCV 96.4 FL (86-99); MONOCYTE (%) 2.3 % (3-12); MONOCYTE COUNT 0.2 K/uL (0-0.8); NEUTROPHIL (%) 93.6 % (45-76); NEUTROPHIL COUNT 7.9 K/uL (1.8-6.4); PLATELET COUNT 169 K/uL (156-360); RBC DIS.WIDTH-CV 17.4 % (11.8-14.6); RBC DIS.WIDTH-SD 61.1 % (39-53); RED BLOOD COUNT 3.29 M/uL (4.00-5.50); WHITE BLOOD COUNT 8.4 K/uL (4.1-10.2)
[2017-08-06 05:50] LABS: CHLORIDE 97 MEQ/L (99-109); GLUCOSE 227 mg/dL (70-99); SODIUM 134 MEQ/L (136-147)
[2017-08-06 05:57] LABS: CREATININE 7.2 MG/DL (0.6-1.3); GFR ESTIMATE (CALCULATED) 8 mL/min/ (58.99-99999); POTASSIUM 5.1 MEQ/L (3.7-5.4); UREA NITROGEN (BUN) 66 mg/dL (9-23)
[2017-08-06 08:01] VITALS: BP 134/87
[2017-08-06 20:33] VITALS: BP 98/55
[2017-08-07 00:08] VITALS: BP 107/56
[2017-08-07 04:11] VITALS: BP 102/64
[2017-08-07 11:23] VITALS: BP 110/54
[2017-08-07 15:17] VITALS: BP 96/55
[2017-08-07 20:59] VITALS: BP 127/61
[2017-08-08 00:32] VITALS: BP 115/61
[2017-08-08 06:17] VITALS: BP 106/61
[2017-08-08 07:11] VITALS: BP 100/60
[2017-08-08 08:11] LABS: BASOPHIL (%) 0 % (0-1); EOSINOPHIL (%) 0 % (0-5); HEMATOCRIT 30.5 % (38.0-50.0); HEMOGLOBIN 9.2 G/DL (12.5-16.6); IMMATURE GRANULOCYTE (%) 1.1 % (0.0-0.7); LYMPHOCYTE (%) 5.4 % (15-42); LYMPHOCYTE COUNT 0.4 K/uL (1.0-2.8); MCHC 30.2 G/DL (30.0-36.0); MCV 96.2 FL (86-99); MONOCYTE COUNT 0.4 K/uL (0-0.8); NEUTROPHIL (%) 88.5 % (45-76); NEUTROPHIL COUNT 7.2 K/uL (1.8-6.4); PLATELET COUNT 179 K/uL (156-360); RBC DIS.WIDTH-CV 17.6 % (11.8-14.6); RBC DIS.WIDTH-SD 61.2 % (39-53); RED BLOOD COUNT 3.17 M/uL (4.00-5.50); WHITE BLOOD COUNT 8.1 K/uL (4.1-10.2)
[2017-08-08 08:26] LABS: ALBUMIN 2.6 G/DL (3.2-4.8); CHLORIDE 100 MEQ/L (99-109); POTASSIUM 4.1 MEQ/L (3.7-5.4); SODIUM 136 MEQ/L (136-147)
[2017-08-08 08:36] LABS: CREATININE 6.9 MG/DL (0.6-1.3); GFR ESTIMATE (CALCULATED) 8 mL/min/ (58.99-99999); GLUCOSE 245 mg/dL (70-99); UREA NITROGEN (BUN) 61 mg/dL (9-23)
[2017-08-08] MEDS ORDERED: LOPRESSOR50 MG PO (11:53)
[2017-08-08 13:44] VITALS: BP 102/60
[2017-08-08] MEDS ORDERED: PREDNISONE10 MG PO (13:48)
[2017-08-08] MEDS ORDERED: STIOLTO RESPIMAT4 GM IH (13:52)
[2017-08-08] MEDS ORDERED: AMOX TR-K CLV1 EAC3 PO (13:53)
== END 2017-08-08 16:05 | disposition home or self-care (01) | DRG 189 ==
LOC: EME 16:22 → 4EAST 18:07 → 4WEST 18:07 → EDOF 18:07 → ENRESERV 18:11 → 4WEST 20:15 → ENRESERV 08-05 08:28 → 4EAST 08-05 17:10 → ENPENDDIS 08-08 → 4EAST 08-08 16:05
PROVIDERS: Emergency Medicine; Internal Medicine Critical Care Medicine; Internal Medicine Nephrology; Obstetrics & Gynecology; Specialist
PROC: 5A1D70Z Performance of Urinary Filtration, Intermittent, Less than 6 Hours Per Day (ICD-10-PCS; 2017-08-03)
PROC: 5A09457 Assistance with Respiratory Ventilation, 24-96 Consecutive Hours, Continuous Positive Airway Pressure (ICD-10-PCS; 2017-08-03)
PROC: 5A1D70Z Performance of Urinary Filtration, Intermittent, Less than 6 Hours Per Day (ICD-10-PCS; 2017-08-03)
PROC: 0W993ZZ Drainage of Right Pleural Cavity, Percutaneous Approach (ICD-10-PCS; principal; 2017-08-04)
PROC: 0W9B3ZZ Drainage of Left Pleural Cavity, Percutaneous Approach (ICD-10-PCS; principal; 2017-08-04)
DX: J96.22 Acute and chronic respiratory failure with hypercapnia (principal); N18.6 End stage renal disease; J90 Pleural effusion, not elsewhere classified; J96.21 Acute and chronic respiratory failure with hypoxia; J18.9 Pneumonia, unspecified organism; J44.0 Chronic obstructive pulmonary disease with (acute) lower respiratory infection; J93.83 Other pneumothorax; I12.0 Hypertensive chronic kidney disease with stage 5 chronic kidney disease or end stage renal disease; I08.0 Rheumatic disorders of both mitral and aortic valves; I48.2 Chronic atrial fibrillation; E11.22 Type 2 diabetes mellitus with diabetic chronic kidney disease; I48.1 Persistent atrial fibrillation; Y95 Nosocomial condition; I25.10 Atherosclerotic heart disease of native coronary artery without angina pectoris; J93.9 Pneumothorax, unspecified; J44.1 Chronic obstructive pulmonary disease with (acute) exacerbation; E87.2 Acidosis; I48.91 Unspecified atrial fibrillation; I25.2 Old myocardial infarction; M10.9 Gout, unspecified; Z99.81 Dependence on supplemental oxygen; Z95.5 Presence of coronary angioplasty implant and graft; Z99.2 Dependence on renal dialysis; Z87.891 Personal history of nicotine dependence; Z79.01 Long term (current) use of anticoagulants; R19.7 Diarrhea, unspecified; Z79.899 Other long term (current) drug therapy; E87.70 Fluid overload, unspecified
CPT/HCPCS: 36415; 36600; 71045; 76942; 80048; 80069; 80202; 82140; 82803; 82945; 82947 91; 83615; 83615 91; 83735; 84100; 84145 90; 84155; 84157; 84484; 85014; 85018; 85025; 85027; 85610; 85730; 87070; 87075; 87205; 87641; 88108; 88305; 89051; 93306; 94002; 94003; 94640; 94640 76; 94660; 94668; 94760; 94799; 97530 GO; 97530 GP; 99202; 99281; 99285; J2543; J2920; J3370; J7050; J7512

== ENCOUNTER 2017-10-31 10:26 | Inpatient (IN) | payer OTHER ==
[~2017-10-31] VITALS: Ht 172.7 cm; Wt 105.3 kg
[~2017-10-31 10:26] MED LIST changes: +AMOX TR-K CLV1 EAC3 PO; +PREDNISONE10 MG PO; +STIOLTO RESPIMAT4 GM IH
[2017-10-31 10:55] LABS: BASOPHIL (%) 0.5 % (0-1); BASOPHIL COUNT 0.1 K/uL (0-0.1); EOSINOPHIL (%) 0.7 % (0-5); EOSINOPHIL COUNT 0.1 K/uL (0-0.3); HEMATOCRIT 37.2 % (38.0-50.0); HEMOGLOBIN 11.8 G/DL (12.5-16.6); IMMATURE GRANULOCYTE (%) 0.9 % (0.0-0.7); LYMPHOCYTE (%) 5.5 % (15-42); LYMPHOCYTE COUNT 0.6 K/uL (1.0-2.8); MCH 28.9 PG (29.0-34.0); MCHC 31.7 G/DL (30.0-36.0); MCV 91.2 FL (86-99); MONOCYTE (%) 7.1 % (3-12); MONOCYTE COUNT 0.8 K/uL (0-0.8); NEUTROPHIL (%) 85.3 % (45-76); NEUTROPHIL COUNT 9.5 K/uL (1.8-6.4); NRBC (%) 0.2 /100 WBC (0-0); PLATELET COUNT 253 K/uL (156-360); RBC DIS.WIDTH-CV 17.3 % (11.8-14.6); RBC DIS.WIDTH-SD 57.6 % (39-53); RED BLOOD COUNT 4.08 M/uL (4.00-5.50); WHITE BLOOD COUNT 11.1 K/uL (4.1-10.2)
[2017-10-31 11:01] LABS: INTER. NORMALIZED RATIO 1.4
[2017-10-31 11:04] LABS: PTT 37.1 SEC (25-37)
[2017-10-31 11:05] LABS: CHLORIDE 96 mEq/L (99-109); POTASSIUM 5.2 mEq/L (3.7-5.4); SODIUM 138 mEq/L (136-147)
[2017-10-31 11:06] LABS: GLUCOSE 164 mg/dL (70-99)
[2017-10-31 11:10] LABS: CREATININE 9.3 mg/dL (0.6-1.3); GFR ESTIMATE (CALCULATED) 6 mL/min/ (58.99-99999)
[2017-10-31 11:11] LABS: UREA NITROGEN (BUN) 84 mg/dL (9-23)
[2017-10-31 11:17] LABS: TROP-I INTERPRETATION NEGATIVE; TROPONIN-I 0.02 ng/mL (0.0-0.30)
[2017-10-31 18:29] VITALS: BP 119/66
[2017-10-31 18:45] VITALS: BP 82/42
[2017-11-01] VITALS (8 sets, daily range): BP systolic 88–107; BP diastolic 52–67
[2017-11-01 05:34] LABS: HEMATOCRIT 34.7 % (38.0-50.0); HEMOGLOBIN 10.8 G/DL (12.5-16.6); MCH 28.4 PG (29.0-34.0); MCHC 31.1 G/DL (30.0-36.0); MCV 91.3 FL (86-99); PLATELET COUNT 225 K/uL (156-360); RBC DIS.WIDTH-CV 17.4 % (11.8-14.6); RBC DIS.WIDTH-SD 57.8 % (39-53); WHITE BLOOD COUNT 9.1 K/uL (4.1-10.2)
[2017-11-01 06:00] LABS: CHLORIDE 96 MEQ/L (99-109); SODIUM 136 MEQ/L (136-147)
[2017-11-01 06:03] LABS: CREATININE 5.4 MG/DL (0.6-1.3); GFR ESTIMATE (CALCULATED) 11 mL/min/ (58.99-99999); GLUCOSE 107 mg/dL (70-99); POTASSIUM 3.5 MEQ/L (3.7-5.4); UREA NITROGEN (BUN) 36 mg/dL (9-23)
[2017-11-01 10:14] LABS: TYPE OF FLUID PLEURAL
[2017-11-01 11:07] LABS: BODY FLUID GLUCOSE 102 MG/DL; BODY FLUID LDH 100 IU/L
[2017-11-01 11:08] LABS: BODY FLUID PROTEIN < 3.0 G/DL
[2017-11-01 11:28] LABS: APPEARANCE CLOUDY-BLOODY; BODY FLUID EOSINOPHILS 2 % (0-25); BODY FLUID RBC'S 43000 /MM^3 (0-100); BODY FLUID WBC'S 308 /MM^3 (0-500); MONONUCLEAR WBC'S 81 %; POLYNUCLEAR WBC'S 17 % (0-25)
[2017-11-02 03:54] VITALS: BP 119/70
[2017-11-02 07:06] VITALS: BP 121/57
[2017-11-02 08:35] LABS: HEMATOCRIT 35.9 % (38.0-50.0); HEMOGLOBIN 11.3 G/DL (12.5-16.6); MCH 28.8 PG (29.0-34.0); MCHC 31.5 G/DL (30.0-36.0); MCV 91.6 FL (86-99); PLATELET COUNT 237 K/uL (156-360); RBC DIS.WIDTH-CV 17.2 % (11.8-14.6); RED BLOOD COUNT 3.92 M/uL (4.00-5.50); WHITE BLOOD COUNT 9.3 K/uL (4.1-10.2)
[2017-11-02 08:45] LABS: ALBUMIN 2.9 G/DL (3.2-4.8); CHLORIDE 94 MEQ/L (99-109); POTASSIUM 3.9 MEQ/L (3.7-5.4); SODIUM 132 MEQ/L (136-147)
[2017-11-02 08:54] LABS: GFR ESTIMATE (CALCULATED) 9 mL/min/ (58.99-99999); GLUCOSE 140 mg/dL (70-99); PHOSPHORUS 5.8 mg/dL (2.5-4.9); UREA NITROGEN (BUN) 52 mg/dL (9-23)
[2017-11-02 08:55] LABS: CREATININE 6.7 MG/DL (0.6-1.3)
[2017-11-02] MEDS ORDERED: LOPRESSOR25 MG PO (10:43)
== END 2017-11-02 14:00 | disposition home or self-care (01) | DRG 189 ==
LOC: EME 10:26 → EDOF 13:40 → 4SOUTH 13:40 → EDOF 13:40 → ENRESERV 13:42 → 4SOUTH 18:17
PROVIDERS: Emergency Medicine; Hospitalist; Internal Medicine Nephrology
DX: J96.21 Acute and chronic respiratory failure with hypoxia (principal); J90 Pleural effusion, not elsewhere classified; N18.6 End stage renal disease; I48.91 Unspecified atrial fibrillation; I25.10 Atherosclerotic heart disease of native coronary artery without angina pectoris; I13.2 Hypertensive heart and chronic kidney disease with heart failure and with stage 5 chronic kidney disease, or end stage renal disease; I08.0 Rheumatic disorders of both mitral and aortic valves; J44.9 Chronic obstructive pulmonary disease, unspecified; E11.22 Type 2 diabetes mellitus with diabetic chronic kidney disease; I50.9 Heart failure, unspecified; D63.1 Anemia in chronic kidney disease; I27.20 Pulmonary hypertension, unspecified; M10.9 Gout, unspecified; J98.11 Atelectasis; I25.2 Old myocardial infarction; Z95.5 Presence of coronary angioplasty implant and graft; Z79.899 Other long term (current) drug therapy; Z87.891 Personal history of nicotine dependence; Z79.01 Long term (current) use of anticoagulants; Z99.2 Dependence on renal dialysis
CPT/HCPCS: 71045; 71046; 76942; 80048; 80069; 82945; 83615 91; 84157; 84484; 85025; 85027; 85610; 85730; 87070; 87075; 87205; 89051; 93005; 94640; 94799; 99281; 99285; G0378; J1160; J1644

== ENCOUNTER 2017-11-28 11:26 | Inpatient (IN) | payer OTHER ==
[~2017-11-28] VITALS: Ht 172.7 cm; Wt 100.6 kg
[2017-11-28 11:58] LABS: BASOPHIL (%) 0.6 % (0-1); BASOPHIL COUNT 0.1 K/uL (0-0.1); EOSINOPHIL (%) 2.1 % (0-5); EOSINOPHIL COUNT 0.2 K/uL (0-0.3); HEMOGLOBIN 11.1 G/DL (12.5-16.6); IMMATURE GRANULOCYTE (%) 0.6 % (0.0-0.7); LYMPHOCYTE (%) 6.4 % (15-42); LYMPHOCYTE COUNT 0.6 K/uL (1.0-2.8); MCH 29.1 PG (29.0-34.0); MCHC 30.8 G/DL (30.0-36.0); MCV 94.5 FL (86-99); MONOCYTE (%) 6.8 % (3-12); MONOCYTE COUNT 0.7 K/uL (0-0.8); NEUTROPHIL (%) 83.5 % (45-76); NEUTROPHIL COUNT 7.9 K/uL (1.8-6.4); PLATELET COUNT 211 K/uL (156-360); RBC DIS.WIDTH-SD 55.3 % (39-53); RED BLOOD COUNT 3.81 M/uL (4.00-5.50); WHITE BLOOD COUNT 9.5 K/uL (4.1-10.2)
[2017-11-28 12:03] LABS: INTER. NORMALIZED RATIO 1.3
[2017-11-28 12:06] LABS: PTT 36.3 SEC (25-37)
[2017-11-28 12:07] LABS: CHLORIDE 95 mEq/L (99-109); POTASSIUM 4.7 mEq/L (3.7-5.4); SODIUM 135 mEq/L (136-147)
[2017-11-28 12:09] LABS: GLUCOSE 151 mg/dL (70-99)
[2017-11-28 12:13] LABS: CREATININE 5.5 mg/dL (0.6-1.3); GFR ESTIMATE (CALCULATED) 11 mL/min/ (58.99-99999)
[2017-11-28 12:14] LABS: UREA NITROGEN (BUN) 39 mg/dL (9-23)
[2017-11-28 12:19] LABS: TROP-I INTERPRETATION NEGATIVE; TROPONIN-I 0.03 ng/mL (0.0-0.30)
[2017-11-28 18:23] VITALS: BP 118/75
[2017-11-28 20:05] VITALS: BP 105/67
[2017-11-28 20:20] LABS: TROP-I INTERPRETATION NEGATIVE; TROPONIN-I 0.01 ng/mL (0.0-0.30)
[2017-11-29 00:13] VITALS: BP 105/65
[2017-11-29 01:14] LABS: TROP-I INTERPRETATION NEGATIVE; TROPONIN-I 0.02 ng/mL (0.0-0.30)
[2017-11-29 04:51] VITALS: BP 92/55
[2017-11-29 07:49] VITALS: BP 90/53
[2017-11-29 11:22] LABS: TYPE OF FLUID PLEURAL
[2017-11-29 12:07] VITALS: BP 105/76
[2017-11-29 12:07] LABS: APPEARANCE CLOUDY-BLOODY; BODY FLUID EOSINOPHILS 1 % (0-25); BODY FLUID RBC'S 52000 /MM^3 (0-100); BODY FLUID WBC'S 435 /MM^3 (0-500); MONONUCLEAR WBC'S 78 %; POLYNUCLEAR WBC'S 21 % (0-25)
[2017-11-29 12:23] LABS: BODY FLUID GLUCOSE 103 MG/DL; BODY FLUID LDH 140 IU/L; BODY FLUID PROTEIN < 3.0 G/DL
[2017-11-29] MEDS ORDERED: SPIRIVA RESPIMAT4 GM IH (14:39)
[2017-11-29] MEDS ORDERED: BREO ELLIPTA I1 EACH IH (14:40)
[2017-11-29 19:00] VITALS: BP 82/58
[2017-11-30 00:44] VITALS: BP 101/53
[2017-11-30 03:30] VITALS: BP 94/68
[2017-11-30 08:25] LABS: BASOPHIL (%) 0.6 % (0-1); BASOPHIL COUNT 0.1 K/uL (0-0.1); EOSINOPHIL (%) 2.4 % (0-5); EOSINOPHIL COUNT 0.2 K/uL (0-0.3); HEMOGLOBIN 10.3 G/DL (12.5-16.6); IMMATURE GRANULOCYTE (%) 0.4 % (0.0-0.7); LYMPHOCYTE (%) 6.6 % (15-42); LYMPHOCYTE COUNT 0.6 K/uL (1.0-2.8); MCH 28.9 PG (29.0-34.0); MCHC 30.3 G/DL (30.0-36.0); MCV 95.5 FL (86-99); MONOCYTE (%) 8.6 % (3-12); MONOCYTE COUNT 0.7 K/uL (0-0.8); NEUTROPHIL (%) 81.4 % (45-76); NEUTROPHIL COUNT 6.9 K/uL (1.8-6.4); PLATELET COUNT 164 K/uL (156-360); RBC DIS.WIDTH-CV 15.9 % (11.8-14.6); RBC DIS.WIDTH-SD 56.3 % (39-53); RED BLOOD COUNT 3.56 M/uL (4.00-5.50); WHITE BLOOD COUNT 8.5 K/uL (4.1-10.2)
[2017-11-30 08:41] LABS: ALBUMIN 2.6 G/DL (3.2-4.8); CHLORIDE 96 MEQ/L (99-109); POTASSIUM 4.5 MEQ/L (3.7-5.4); SODIUM 135 MEQ/L (136-147); TOTAL BILIRUBIN 0.7 MG/DL (0.0-1.0)
[2017-11-30 08:47] LABS: ALKALINE PHOSPHATASE 287 IU/L (3-129); ALT (GPT) 22 IU/L (3-49); AST (GOT) 26 IU/L (2-34); CREATININE 5.4 MG/DL (0.6-1.3); GFR ESTIMATE (CALCULATED) 11 mL/min/ (58.99-99999); GLUCOSE 141 mg/dL (70-99); TOTAL PROTEIN 6.2 G/DL (6.4-8.3); UREA NITROGEN (BUN) 36 mg/dL (9-23)
[2017-11-30 14:10] VITALS: BP 99/43
[2017-11-30 15:12] VITALS: BP 81/51
[2017-11-30 19:00] VITALS: BP 83/53
[2017-12-01 00:18] VITALS: BP 93/55
[2017-12-01 05:05] VITALS: BP 116/68
[2017-12-01 08:00] VITALS: BP 126/70
[2017-12-01 10:50] LABS: HEMATOCRIT 34.6 % (38.0-50.0); HEMOGLOBIN 10.5 G/DL (12.5-16.6); MCH 29.1 PG (29.0-34.0); MCHC 30.3 G/DL (30.0-36.0); MCV 95.8 FL (86-99); PLATELET COUNT 154 K/uL (156-360); RBC DIS.WIDTH-CV 15.9 % (11.8-14.6); RBC DIS.WIDTH-SD 56.3 % (39-53); RED BLOOD COUNT 3.61 M/uL (4.00-5.50); WHITE BLOOD COUNT 6.5 K/uL (4.1-10.2)
[2017-12-01 10:57] LABS: INTER. NORMALIZED RATIO 1.3
[2017-12-01 11:41] VITALS: BP 120/78
[2017-12-01 15:06] VITALS: BP 103/61
[2017-12-01 19:23] VITALS: BP 106/68
[2017-12-02] VITALS (9 sets, daily range): BP systolic 105–148; BP diastolic 58–79
[2017-12-03] VITALS (8 sets, daily range): BP systolic 85–157; BP diastolic 50–76
[2017-12-03 05:45] LABS: HEMATOCRIT 34.8 % (38.0-50.0); HEMOGLOBIN 10.6 G/DL (12.5-16.6); MCH 28.8 PG (29.0-34.0); MCHC 30.5 G/DL (30.0-36.0); MCV 94.6 FL (86-99); RBC DIS.WIDTH-CV 16.2 % (11.8-14.6); RBC DIS.WIDTH-SD 56.7 % (39-53); RED BLOOD COUNT 3.68 M/uL (4.00-5.50); WHITE BLOOD COUNT 15.4 K/uL (4.1-10.2)
[2017-12-03 05:50] LABS: PLATELET COUNT 210 K/uL (156-360)
[2017-12-03 06:22] LABS: CHLORIDE 91 MEQ/L (99-109); CREATININE 6.7 MG/DL (0.6-1.3); GFR ESTIMATE (CALCULATED) 9 mL/min/ (58.99-99999); GLUCOSE 169 mg/dL (70-99); MAGNESIUM 2.2 mg/dl (1.3-2.7); POTASSIUM 5.8 MEQ/L (3.7-5.4); SODIUM 134 MEQ/L (136-147); UREA NITROGEN (BUN) 66 mg/dL (9-23)
[2017-12-03 11:57] LABS: COMMENTS - BLOOD GASES C+; DEVICE HHFNC; FI02 40 %; O2 FLOW 30 L/MIN; SITE L BRACH LINE; TOTAL RESP RATE 24 resp/min
[2017-12-03 11:58] LABS: BASE EXCESS 9.1 mEq/L (-3 to +3); BICARBONATE 34.1 mEq/L (22-26); CARBOXY HGB 1.4 % (0-5); METHEMOGLOBIN 0.5 % (0-1.5); O2 SATURATION (CALCULATED) 95.1 % (95-99); PCO2 48 mm Hg (35-45); PO2 82 mm Hg (80-100); pH 7.46 (7.35-7.45)
[2017-12-03 15:27] LABS: COMMENTS - BLOOD GASES C+; DEVICE HHFNC; FI02 50 %; O2 FLOW 30 L/MIN; SITE RB
[2017-12-03 15:28] LABS: BASE EXCESS 7.5 mEq/L (-3 to +3); BICARBONATE 33.4 mEq/L (22-26); CARBOXY HGB 0.6 % (0-5); METHEMOGLOBIN 0.4 % (0-1.5); O2 SATURATION (CALCULATED) 95.9 % (95-99); PCO2 54 mm Hg (35-45); PO2 111 mm Hg (80-100); TOTAL RESP RATE 24 resp/min
[2017-12-03 15:52] LABS: CHLORIDE 93 MEQ/L (99-109); SODIUM 137 MEQ/L (136-147)
[2017-12-03 16:01] LABS: CREATININE 3.7 MG/DL (0.6-1.3); GFR ESTIMATE (CALCULATED) 17 mL/min/ (58.99-99999); GLUCOSE 276 mg/dL (70-99); POTASSIUM 4.6 MEQ/L (3.7-5.4); UREA NITROGEN (BUN) 31 mg/dL (9-23)
[2017-12-04] VITALS (7 sets, daily range): BP systolic 93–125; BP diastolic 50–85
[2017-12-04 05:46] LABS: BASOPHIL (%) 0 % (0-1); EOSINOPHIL (%) 0 % (0-5); HEMATOCRIT 33.2 % (38.0-50.0); HEMOGLOBIN 10.2 G/DL (12.5-16.6); IMMATURE GRANULOCYTE (%) 0.5 % (0.0-0.7); LYMPHOCYTE (%) 2.7 % (15-42); LYMPHOCYTE COUNT 0.3 K/uL (1.0-2.8); MCH 28.7 PG (29.0-34.0); MCHC 30.7 G/DL (30.0-36.0); MCV 93.3 FL (86-99); MONOCYTE (%) 2.4 % (3-12); MONOCYTE COUNT 0.2 K/uL (0-0.8); NEUTROPHIL (%) 94.4 % (45-76); NEUTROPHIL COUNT 9.3 K/uL (1.8-6.4); PLATELET COUNT 162 K/uL (156-360); RBC DIS.WIDTH-CV 16.2 % (11.8-14.6); RBC DIS.WIDTH-SD 55.4 % (39-53); RED BLOOD COUNT 3.56 M/uL (4.00-5.50); WHITE BLOOD COUNT 9.9 K/uL (4.1-10.2)
[2017-12-04 06:22] LABS: CHLORIDE 94 MEQ/L (99-109); GFR ESTIMATE (CALCULATED) 14 mL/min/ (58.99-99999); GLUCOSE 210 mg/dL (70-99); POTASSIUM 4.8 MEQ/L (3.7-5.4); SODIUM 135 MEQ/L (136-147)
[2017-12-04 06:27] LABS: CREATININE 4.4 MG/DL (0.6-1.3); UREA NITROGEN (BUN) 47 mg/dL (9-23)
[2017-12-05] VITALS (7 sets, daily range): BP systolic 99–183; BP diastolic 46–93
[2017-12-05 08:58] LABS: COMMENTS - BLOOD GASES C+; DEVICE NC; O2 FLOW 4 L/MIN; SITE RB; TOTAL RESP RATE 20 resp/min
[2017-12-05 08:59] LABS: PCO2 65 mm Hg (35-45)
[2017-12-05 09:00] LABS: BASE EXCESS 0.1 mEq/L (-3 to +3); BICARBONATE 28.5 mEq/L (22-26); PO2 113 mm Hg (80-100)
[2017-12-05 09:02] LABS: pH 7.25 (7.35-7.45)
[2017-12-05 16:27] LABS: BASOPHIL (%) 0 % (0-1); EOSINOPHIL (%) 0 % (0-5); HEMATOCRIT 33.8 % (38.0-50.0); HEMOGLOBIN 10.3 G/DL (12.5-16.6); IMMATURE GRANULOCYTE (%) 0.7 % (0.0-0.7); LYMPHOCYTE (%) 2.1 % (15-42); LYMPHOCYTE COUNT 0.2 K/uL (1.0-2.8); MCH 28.9 PG (29.0-34.0); MCHC 30.5 G/DL (30.0-36.0); MCV 94.7 FL (86-99); MONOCYTE (%) 1.6 % (3-12); MONOCYTE COUNT 0.2 K/uL (0-0.8); NEUTROPHIL (%) 95.6 % (45-76); NEUTROPHIL COUNT 8.8 K/uL (1.8-6.4); NRBC (%) 0.2 /100 WBC (0-0); PLATELET COUNT 169 K/uL (156-360); RBC DIS.WIDTH-SD 55.7 % (39-53); RED BLOOD COUNT 3.57 M/uL (4.00-5.50); WHITE BLOOD COUNT 9.2 K/uL (4.1-10.2)
[2017-12-05 16:57] LABS: CHLORIDE 93 MEQ/L (99-109); POTASSIUM 5.5 MEQ/L (3.7-5.4); SODIUM 133 MEQ/L (136-147)
[2017-12-05 17:14] LABS: GLUCOSE 355 mg/dL (70-99); UREA NITROGEN (BUN) 77 mg/dL (9-23)
[2017-12-05 17:15] LABS: CREATININE 6.3 MG/DL (0.6-1.3); GFR ESTIMATE (CALCULATED) 9 mL/min/ (58.99-99999)
[2017-12-05 21:58] LABS: COMMENTS - BLOOD GASES C+; DEVICE NC; O2 FLOW 4 L/MIN; SITE RB
[2017-12-05 22:00] LABS: PCO2 64 mm Hg (35-45); PO2 200 mm Hg (80-100); pH 7.33 (7.35-7.45)
[2017-12-05 22:01] LABS: BASE EXCESS 6.3 mEq/L (-3 to +3); BICARBONATE 33.7 mEq/L (22-26); CARBOXY HGB 0.4 % (0-5); METHEMOGLOBIN 0.3 % (0-1.5); O2 SATURATION (CALCULATED) 98.1 % (95-99)
[2017-12-06] VITALS (7 sets, daily range): BP systolic 105–179; BP diastolic 67–86
[2017-12-06 05:58] LABS: BASOPHIL (%) 0 % (0-1); EOSINOPHIL (%) 0 % (0-5); HEMATOCRIT 34.7 % (38.0-50.0); HEMOGLOBIN 10.5 G/DL (12.5-16.6); IMMATURE GRANULOCYTE (%) 0.9 % (0.0-0.7); LYMPHOCYTE (%) 2.5 % (15-42); LYMPHOCYTE COUNT 0.2 K/uL (1.0-2.8); MCH 28.5 PG (29.0-34.0); MCHC 30.3 G/DL (30.0-36.0); MONOCYTE (%) 3.3 % (3-12); MONOCYTE COUNT 0.2 K/uL (0-0.8); NEUTROPHIL (%) 93.3 % (45-76); NEUTROPHIL COUNT 6.5 K/uL (1.8-6.4); NRBC (%) 0.3 /100 WBC (0-0); PLATELET COUNT 154 K/uL (156-360); RBC DIS.WIDTH-CV 15.9 % (11.8-14.6); RBC DIS.WIDTH-SD 55.7 % (39-53); RED BLOOD COUNT 3.69 M/uL (4.00-5.50); WHITE BLOOD COUNT 6.9 K/uL (4.1-10.2)
[2017-12-06 06:25] LABS: CHLORIDE 91 MEQ/L (99-109); GFR ESTIMATE (CALCULATED) 15 mL/min/ (58.99-99999); GLUCOSE 278 mg/dL (70-99); POTASSIUM 5.1 MEQ/L (3.7-5.4); SODIUM 134 MEQ/L (136-147); UREA NITROGEN (BUN) 44 mg/dL (9-23)
[2017-12-06 06:43] LABS: CREATININE 4.2 MG/DL (0.6-1.3)
[2017-12-07 05:22] LABS: BASOPHIL (%) 0.2 % (0-1); EOSINOPHIL (%) 0 % (0-5); HEMATOCRIT 36.1 % (38.0-50.0); IMMATURE GRANULOCYTE (%) 1.1 % (0.0-0.7); LYMPHOCYTE (%) 1.9 % (15-42); LYMPHOCYTE COUNT 0.2 K/uL (1.0-2.8); MCH 29.3 PG (29.0-34.0); MCHC 30.5 G/DL (30.0-36.0); MONOCYTE COUNT 0.5 K/uL (0-0.8); NEUTROPHIL (%) 92.8 % (45-76); NEUTROPHIL COUNT 10.5 K/uL (1.8-6.4); NRBC (%) 0.4 /100 WBC (0-0); RBC DIS.WIDTH-CV 16.2 % (11.8-14.6); RBC DIS.WIDTH-SD 56.5 % (39-53); RED BLOOD COUNT 3.76 M/uL (4.00-5.50); WHITE BLOOD COUNT 11.4 K/uL (4.1-10.2)
[2017-12-07 05:33] LABS: CHLORIDE 94 MEQ/L (99-109); GFR ESTIMATE (CALCULATED) 10 mL/min/ (58.99-99999); GLUCOSE 330 mg/dL (70-99); POTASSIUM 5.5 MEQ/L (3.7-5.4); SODIUM 136 MEQ/L (136-147)
[2017-12-07 05:34] LABS: CREATININE 5.7 MG/DL (0.6-1.3); UREA NITROGEN (BUN) 71 mg/dL (9-23)
[2017-12-07 05:49] VITALS: BP 133/68
[2017-12-07 05:54] LABS: PLAT.SUFFICIENCY DECREASED; PLATELET COUNT 134 K/uL (156-360)
[2017-12-07 13:00] VITALS: BP 101/61
[2017-12-07 13:54] LABS: HEMOGLOBIN A1c (GLYCOHEMOGLOB) 6.1 % (Below 5.7)
[2017-12-07 16:30] VITALS: BP 98/64
[2017-12-07 20:38] VITALS: BP 106/63
[2017-12-07 23:29] VITALS: BP 119/80
[2017-12-08] VITALS (7 sets, daily range): BP systolic 92–135; BP diastolic 56–95
[2017-12-08 05:50] LABS: HEMOGLOBIN 11.4 G/DL (12.5-16.6); MCH 28.9 PG (29.0-34.0); MCV 96.4 FL (86-99); NRBC (%) 0.4 /100 WBC (0-0); PLATELET COUNT 166 K/uL (156-360); RBC DIS.WIDTH-CV 16.5 % (11.8-14.6); RBC DIS.WIDTH-SD 57.1 % (39-53); RED BLOOD COUNT 3.94 M/uL (4.00-5.50); WHITE BLOOD COUNT 10.9 K/uL (4.1-10.2)
[2017-12-08 06:18] LABS: CHLORIDE 92 MEQ/L (99-109); GLUCOSE 297 mg/dL (70-99); POTASSIUM 4.6 MEQ/L (3.7-5.4); SODIUM 139 MEQ/L (136-147); UREA NITROGEN (BUN) 53 mg/dL (9-23)
[2017-12-08 06:21] LABS: CREATININE 4.7 MG/DL (0.6-1.3); GFR ESTIMATE (CALCULATED) 13 mL/min/ (58.99-99999)
[2017-12-09 00:23] VITALS: BP 97/64
[2017-12-09 04:57] VITALS: BP 122/67
[2017-12-09 08:00] VITALS: BP 106/67
[2017-12-09 17:00] VITALS: BP 89/58
[2017-12-09 20:25] VITALS: BP 122/66
[2017-12-10 01:01] VITALS: BP 89/64
[2017-12-10 05:29] VITALS: BP 121/61
[2017-12-10 05:58] LABS: HEMATOCRIT 38.9 % (38.0-50.0); HEMOGLOBIN 12.2 G/DL (12.5-16.6); MCH 29.3 PG (29.0-34.0); MCHC 31.4 G/DL (30.0-36.0); MCV 93.5 FL (86-99); NRBC (%) 0.3 /100 WBC (0-0); PLATELET COUNT 136 K/uL (156-360); RBC DIS.WIDTH-SD 55.8 % (39-53); RED BLOOD COUNT 4.16 M/uL (4.00-5.50); WHITE BLOOD COUNT 14.7 K/uL (4.1-10.2)
[2017-12-10 06:52] LABS: CHLORIDE 97 MEQ/L (99-109); POTASSIUM 4.9 MEQ/L (3.7-5.4); SODIUM 138 MEQ/L (136-147)
[2017-12-10 07:06] LABS: CREATININE 6.9 MG/DL (0.6-1.3); GFR ESTIMATE (CALCULATED) 8 mL/min/ (58.99-99999); GLUCOSE 107 mg/dL (70-99); UREA NITROGEN (BUN) 83 mg/dL (9-23)
[2017-12-10] MEDS ORDERED: DILTIAZEM 24HR120 MG PO (11:28)
[2017-12-10] MEDS ORDERED: PREDNISONE5 MG PO (11:32)
[2017-12-10] MEDS ORDERED: GLIPIZIDE10 MG PO (11:33)
[2017-12-10] MEDS ORDERED: NEPHRO-VITE,1 TABLET PO (11:33)
[2017-12-10] MEDS ORDERED: DUONEB 2.5-0.5 M3 ML AEROSOL (11:34)
[2017-12-10] MEDS ORDERED: TRAMADOL HCL50 MG PO (11:36)
[2017-12-10 13:05] VITALS: BP 120/67
== END 2017-12-10 15:22 | disposition home health service (06) | DRG 190 ==
LOC: EME 11:26 → 4SOUTH 14:36 → EDOF 14:36 → ENRESERV 14:37 → 4SOUTH 18:07 → 4EAST 11-29 15:01 → 4SOUTH 11-29 15:01 → CANRESERV 11-29 16:09 → ENRESERV 11-29 16:09 → 4SOUTH 12-03 16:00 → ENRESERV 12-03 16:06 → 4EAST 12-03 16:48 → ENPENDDIS 12-10 → 4EAST 12-10 15:22
PROVIDERS: Emergency Medicine; Hospitalist; Internal Medicine; Internal Medicine Nephrology; Internal Medicine Pulmonary Disease; Nurse Practitioner Family; Student in an Organized Health Care Education/Training Program
PROC: 5A1D70Z Performance of Urinary Filtration, Intermittent, Less than 6 Hours Per Day (ICD-10-PCS; principal; 2017-11-28)
PROC: 0W993ZZ Drainage of Right Pleural Cavity, Percutaneous Approach (ICD-10-PCS; 2017-11-29)
PROC: 0W9B3ZZ Drainage of Left Pleural Cavity, Percutaneous Approach (ICD-10-PCS; 2017-12-01)
PROC: 0W9930Z Drainage of Right Pleural Cavity with Drainage Device, Percutaneous Approach (ICD-10-PCS; 2017-12-02)
PROC: 5A09357 Assistance with Respiratory Ventilation, Less than 24 Consecutive Hours, Continuous Positive Airway Pressure (ICD-10-PCS; 2017-12-04)
DX: J44.0 Chronic obstructive pulmonary disease with (acute) lower respiratory infection (principal); J15.9 Unspecified bacterial pneumonia; I13.2 Hypertensive heart and chronic kidney disease with heart failure and with stage 5 chronic kidney disease, or end stage renal disease; I50.32 Chronic diastolic (congestive) heart failure; J44.1 Chronic obstructive pulmonary disease with (acute) exacerbation; J98.11 Atelectasis; E87.5 Hyperkalemia; E87.2 Acidosis; E11.22 Type 2 diabetes mellitus with diabetic chronic kidney disease; N18.6 End stage renal disease; J96.21 Acute and chronic respiratory failure with hypoxia; D63.1 Anemia in chronic kidney disease; I95.9 Hypotension, unspecified; I48.2 Chronic atrial fibrillation; I25.10 Atherosclerotic heart disease of native coronary artery without angina pectoris; E78.5 Hyperlipidemia, unspecified; I27.20 Pulmonary hypertension, unspecified; I08.0 Rheumatic disorders of both mitral and aortic valves; K64.8 Other hemorrhoids; E66.3 Overweight; Z68.33 Body mass index [BMI] 33.0-33.9, adult; Z99.81 Dependence on supplemental oxygen; Z99.2 Dependence on renal dialysis; I25.2 Old myocardial infarction; Z95.5 Presence of coronary angioplasty implant and graft; Z87.891 Personal history of nicotine dependence
CPT/HCPCS: 32557; 36600; 71045; 71046; 76942; 78582; 80048; 80048 91; 80053; 80202; 81003; 82945; 82948; 83036; 83605; 83615 91; 83735; 83880; 84157; 84484; 85025; 85027; 85379; 85610; 85730; 87040; 87070; 87075; 87205; 87641; 87801; 89051; 93005; 94640; 94660; 94760; 94799; 97530 GP; 99281; 99284; A9540; A9567; C1729; G0378; J1644; J1940; J2543; J2930; J3010; J3370; J7030; J7040; J7050; J7512; P9047

== ENCOUNTER 2017-12-17 11:27 | Inpatient (IN) | payer OTHER ==
[~2017-12-17] VITALS: Ht 172.7 cm; Wt 94.6 kg
[~2017-12-17 11:27] MED LIST changes: +BREO ELLIPTA I1 EACH IH; +DUONEB 2.5-0.5 M3 ML AEROSOL; +GLIPIZIDE10 MG PO; +NEPHRO-VITE,1 TABLET PO; +PREDNISONE5 MG PO; +SPIRIVA RESPIMAT4 GM IH; +TRAMADOL HCL50 MG PO
[2017-12-17 13:12] LABS: BASOPHIL (%) 0.5 % (0-1); BASOPHIL COUNT 0.1 K/uL (0-0.1); EOSINOPHIL (%) 0.8 % (0-5); EOSINOPHIL COUNT 0.1 K/uL (0-0.3); HEMATOCRIT 31.6 % (38.0-50.0); HEMOGLOBIN 10.3 G/DL (12.5-16.6); IMMATURE GRANULOCYTE (%) 0.6 % (0.0-0.7); LYMPHOCYTE (%) 2.5 % (15-42); LYMPHOCYTE COUNT 0.4 K/uL (1.0-2.8); MCH 30.7 PG (29.0-34.0); MCHC 32.6 G/DL (30.0-36.0); MCV 94.3 FL (86-99); MONOCYTE (%) 4.1 % (3-12); MONOCYTE COUNT 0.6 K/uL (0-0.8); NEUTROPHIL (%) 91.5 % (45-76); PLATELET COUNT 98 K/uL (156-360); RBC DIS.WIDTH-CV 17.8 % (11.8-14.6); RED BLOOD COUNT 3.35 M/uL (4.00-5.50); WHITE BLOOD COUNT 15.3 K/uL (4.1-10.2)
[2017-12-17 13:19] LABS: ALBUMIN 3.1 g/dL (3.2-4.8); CHLORIDE 94 mEq/L (99-109); POTASSIUM 4.3 mEq/L (3.7-5.4); SODIUM 137 mEq/L (136-147)
[2017-12-17 13:22] LABS: GLUCOSE 236 mg/dL (70-99); TOTAL PROTEIN 6.1 g/dL (6.4-8.3)
[2017-12-17 13:24] LABS: TOTAL BILIRUBIN 1.1 mg/dL (0.0-1.0)
[2017-12-17 13:25] LABS: ALKALINE PHOSPHATASE 274 IU/L (3-129); CREATININE 6.8 mg/dL (0.6-1.3); GFR ESTIMATE (CALCULATED) 9 mL/min/ (58.99-99999)
[2017-12-17 13:26] LABS: UREA NITROGEN (BUN) 57 mg/dL (9-23)
[2017-12-17 13:27] LABS: AST (GOT) 24 IU/L (2-34)
[2017-12-17 13:28] LABS: ALT (GPT) 45 IU/L (3-49)
[2017-12-17 13:36] LABS: TROP-I INTERPRETATION NEGATIVE; TROPONIN-I 0.02 ng/mL (0.0-0.30)
[2017-12-17 14:19] LABS: DEVICE NC; O2 FLOW 5 L/MIN; SITE RB
[2017-12-17 14:20] LABS: BASE EXCESS 3.1 mEq/L (-3 to +3); BICARBONATE 30.1 mEq/L (22-26); CARBOXY HGB 2.2 % (0-5); METHEMOGLOBIN 0.7 % (0-1.5); O2 SATURATION (CALCULATED) 90.7 % (95-99); PCO2 57 mm Hg (35-45); PO2 62 mm Hg (80-100); pH 7.33 (7.35-7.45)
[2017-12-17 22:50] VITALS: BP 138/82
[2017-12-18] VITALS (7 sets, daily range): BP systolic 93–130; BP diastolic 63–80
[2017-12-18 18:27] LABS: COMMENTS - BLOOD GASES A+C+; DEVICE NC; FI02 4 %; SITE RR; TOTAL RESP RATE 24 resp/min
[2017-12-18 18:28] LABS: BASE EXCESS 3.8 mEq/L (-3 to +3); BICARBONATE 30.4 mEq/L (22-26); CARBOXY HGB 3.8 % (0-5); METHEMOGLOBIN 0.1 % (0-1.5); O2 SATURATION (CALCULATED) 93.9 % (95-99); PCO2 55 mm Hg (35-45); PO2 70 mm Hg (80-100); pH 7.35 (7.35-7.45)
[2017-12-19 03:00] VITALS: BP 105/59
[2017-12-19 05:51] LABS: BASOPHIL (%) 0.2 % (0-1); EOSINOPHIL (%) 0.1 % (0-5); HEMATOCRIT 34.1 % (38.0-50.0); HEMOGLOBIN 10.6 G/DL (12.5-16.6); IMMATURE GRANULOCYTE (%) 0.4 % (0.0-0.7); LYMPHOCYTE (%) 2.1 % (15-42); LYMPHOCYTE COUNT 0.2 K/uL (1.0-2.8); MCH 29.8 PG (29.0-34.0); MCHC 31.1 G/DL (30.0-36.0); MCV 95.8 FL (86-99); MONOCYTE (%) 0.6 % (3-12); MONOCYTE COUNT 0.1 K/uL (0-0.8); NEUTROPHIL (%) 96.6 % (45-76); NEUTROPHIL COUNT 11.3 K/uL (1.8-6.4); PLATELET COUNT 117 K/uL (156-360); RBC DIS.WIDTH-SD 62.8 % (39-53); RED BLOOD COUNT 3.56 M/uL (4.00-5.50); WHITE BLOOD COUNT 11.7 K/uL (4.1-10.2)
[2017-12-19 06:16] LABS: CHLORIDE 93 MEQ/L (99-109); CREATININE 6.5 MG/DL (0.6-1.3); GFR ESTIMATE (CALCULATED) 9 mL/min/ (58.99-99999); GLUCOSE 269 mg/dL (70-99); SODIUM 135 MEQ/L (136-147); UREA NITROGEN (BUN) 52 mg/dL (9-23)
[2017-12-19 06:37] LABS: POTASSIUM ND MEQ/L (3.7-5.4)
[2017-12-19 07:07] VITALS: BP 100/59
[2017-12-19 08:55] LABS: POTASSIUM 5.3 MEQ/L (3.7-5.4)
[2017-12-19 14:50] VITALS: BP 109/72
[2017-12-19 16:55] VITALS: BP 110/72
[2017-12-19 19:52] VITALS: BP 112/66
[2017-12-19 23:25] VITALS: BP 117/58
[2017-12-20 03:49] VITALS: BP 141/87
[2017-12-20 05:30] LABS: BASOPHIL (%) 0.1 % (0-1); EOSINOPHIL (%) 0 % (0-5); HEMATOCRIT 31.2 % (38.0-50.0); HEMOGLOBIN 9.5 G/DL (12.5-16.6); IMMATURE GRANULOCYTE (%) 0.6 % (0.0-0.7); LYMPHOCYTE COUNT 0.3 K/uL (1.0-2.8); MCH 29.5 PG (29.0-34.0); MCHC 30.4 G/DL (30.0-36.0); MCV 96.9 FL (86-99); MONOCYTE (%) 1.9 % (3-12); MONOCYTE COUNT 0.3 K/uL (0-0.8); NEUTROPHIL (%) 95.4 % (45-76); NEUTROPHIL COUNT 15.1 K/uL (1.8-6.4); PLATELET COUNT 108 K/uL (156-360); RED BLOOD COUNT 3.22 M/uL (4.00-5.50); WHITE BLOOD COUNT 15.8 K/uL (4.1-10.2)
[2017-12-20 06:13] LABS: CHLORIDE 94 MEQ/L (99-109); GFR ESTIMATE (CALCULATED) 18 mL/min/ (58.99-99999); GLUCOSE 281 mg/dL (70-99); POTASSIUM 4.3 MEQ/L (3.7-5.4); SODIUM 137 MEQ/L (136-147); UREA NITROGEN (BUN) 37 mg/dL (9-23)
[2017-12-20 06:22] LABS: CREATININE 3.5 MG/DL (0.6-1.3)
[2017-12-20 07:30] VITALS: BP 114/59
[2017-12-20 11:28] VITALS: BP 124/55
[2017-12-20] MEDS ORDERED: TRAZODONE HCL50 MG PO (11:56)
[2017-12-20] MEDS ORDERED: DUONEB 2.5-0.5 M3 ML AEROSOL (11:56)
== END 2017-12-20 15:10 | disposition hospice, home (50) | DRG 190 ==
LOC: EME 11:27 → EDOF 21:50 → 4EAST 21:50 → ENRESERV 21:55 → 4EAST 22:38 → ENRESERVDT 12-20 10:55 → CANRESERV 12-20 10:55 → 4EAST 12-20 15:10
PROVIDERS: Emergency Medicine; Hospitalist; Internal Medicine; Internal Medicine Pulmonary Disease
PROC: 5A1D70Z Performance of Urinary Filtration, Intermittent, Less than 6 Hours Per Day (ICD-10-PCS; principal; 2017-12-17)
PROC: 5A09357 Assistance with Respiratory Ventilation, Less than 24 Consecutive Hours, Continuous Positive Airway Pressure (ICD-10-PCS; 2017-12-17)
DX: J44.1 Chronic obstructive pulmonary disease with (acute) exacerbation (principal); J96.21 Acute and chronic respiratory failure with hypoxia; J44.0 Chronic obstructive pulmonary disease with (acute) lower respiratory infection; J18.9 Pneumonia, unspecified organism; E87.70 Fluid overload, unspecified; E87.2 Acidosis; I95.9 Hypotension, unspecified; I13.2 Hypertensive heart and chronic kidney disease with heart failure and with stage 5 chronic kidney disease, or end stage renal disease; I50.32 Chronic diastolic (congestive) heart failure; N18.6 End stage renal disease; I48.2 Chronic atrial fibrillation; E11.22 Type 2 diabetes mellitus with diabetic chronic kidney disease; D63.1 Anemia in chronic kidney disease; I27.20 Pulmonary hypertension, unspecified; I08.0 Rheumatic disorders of both mitral and aortic valves; I25.10 Atherosclerotic heart disease of native coronary artery without angina pectoris; E78.5 Hyperlipidemia, unspecified; Z51.5 Encounter for palliative care; Z66 Do not resuscitate; E66.9 Obesity, unspecified; Z68.31 Body mass index [BMI] 31.0-31.9, adult; Z99.2 Dependence on renal dialysis; I25.2 Old myocardial infarction; Z95.5 Presence of coronary angioplasty implant and graft; Z79.84 Long term (current) use of oral hypoglycemic drugs; Z87.891 Personal history of nicotine dependence
CPT/HCPCS: 36600; 71045; 80048; 80053; 82948; 84484; 84999; 85025; 93005; 94002; 94640; 94660; 94760; 94799; 99281; 99284; J0456; J2930; P9047